=== PATIENT | male | born 1970 | race Caucasian/White ===

== ENCOUNTER 2018-02-23 19:39 | Emergency (ER) | payer MEDICAID, SELFPAY ==
[2018-02-23 19:40] VITALS: BP 166/113; PULSE 82; RESP 15; TEMP 37; O2SAT 98; BMI 25.8
[2018-02-23] MEDS: HYDROmorphone 1 MG/ML Syringe IM (20:03)
[2018-02-23] MEDS: Ondansetron ODT 4 MG Tablet PO (20:08)
--- NOTE | 2018-02-23 22:02 | ED.DCSUM_ITS ---
- ER Visit Summary Date of Service: 02/23/18 Chief Complaint: Laceration History of Present Illness: The patient is a [address] Pathak. He reports his tetanus is up-to-date. He cut his left forearm with a razor knife just prior to coming to the emergency department. He reports he has a sharp pains 10 at 10 severity. Is worsened by movement and relieved by rest. He denies any paresthesias distally. Physical Examination: Vitals: Stable. Afebrile. General: Well-nourished and well-developed. Head: Normocephalic atraumatic. Neck: Supple, no lymphadenopathy. No JVD. Nontender. Cardiovascular: Regular rate and rhythm. No murmurs. Respiratory: No respiratory distress. Clear to auscultation bilaterally. Abdominal: Soft, nontender, nondistended, normal bowel sounds. No guarding, rebound, or peritoneal signs. Back: Nontender. Extremities: 8 cm laceration to the anterior surface of his proximal left forearm. There is tendon involvement. He has decreased sensation to light touch to his fourth and fifth fingers. He has inability to flex his third and fourth fingers against resistance.. Skin: Normal color, no rash. Neurologic: Alert and oriented ?3. Cranial nerves II through XII are intact. Normal strength and sensation. Psych: Normal affect. Emergency Department Course and Treatment: Patient was treated with Dilaudid IM , Zofran p.o., and oxycodone p.o. He had his wound anesthetized. This was then explored with a blood pressure cuff. There is clear involvement of what I suspect is his brachial radialis tendon. The blood pressure cuff was deflated. There is no arterial bleeding. His skin was cleansed and the wound was irrigated. It was then closed. He tolerated this well. Treatment Plan: Patient was discussed with Dr. Lee Fitch who asked that I refer him to hand surgery. He was then discussed with Dr. Curtis, from [facility], who would like him placed on Duricef for the next 5 days. He does not want him placed in a splint. He is instructed to follow-up with him for further evaluation and repair of this tendon laceration. Also questions whether or not the paresthesias may be from swelling and that he will reevaluate this. I discussed with the patient and answered all questions. He will be discharged with oxycodone, Colace, and Duricef. Return to the emergency department for any worsening symptoms. Disposition: To home in improved and stable condition. Impression: 1. Laceration left forearm, 8 cm, with tendon involvement. Procedure note: Wound was cleansed with chlorhexidine soap. Anesthetized with 1% lidocaine without epinephrine. Copiously irrigated with normal saline. Wound was explored there is no foreign material present. It was closed with 7 simple interrupted 4- 0 ethilon sutures. The patient tolerated it well. This note was generated with [employer] dictation software. It may contain incorrect words, spelling, and punctuation that were not noted in review of the chart prior to signing ED Disposition - Plan for ED Patient: Disposition: Home or Assisted Living Chief Complaint: Laceration Instructions: ED Laceration Tendon Prescriptions: Oxycodone HCl/Acetaminophen [Percocet 5/325] 1 tablet PO Q6H PRN PRN 5 Days #20 tablet PRN Reason: Pain Docusate Sodium [Colace] 100 mg PO DAILY #20 capsule Cefadroxil [Duricef] 500 mg PO BID #10 capsule Referrals: Chai Pathak DO [Primary Care Provider] - Additional Instructions: Follow up with Dr. Hernandez in 1 week for further treatment. His number is .
[2018-02-23] MEDS: oxyCODONE 5 MG Tablet 10 MG PO (22:33)
[2018-02-23] MEDS: oxyCODONE 5 MG Tablet PO (22:34)
[2018-02-23] MEDS: Cephalexin 500 MG Capsule PO (22:34)
== END 2018-02-23 22:51 | disposition home or self-care (01) ==
LOC: ED 20:52
PROVIDERS: Emergency Provider Emergency Medicine; Family Provider Family Medicine; PCP Family Medicine
DX: S51.812A Laceration without foreign body of left forearm, initial encounter (principal); S56.124A Laceration of flexor muscle, fascia and tendon of left middle finger at forearm level, initial encounter; S56.126A Laceration of flexor muscle, fascia and tendon of left ring finger at forearm level, initial encounter; S56.128A Laceration of flexor muscle, fascia and tendon of left little finger at forearm level, initial encounter; Z79.899 Other long term (current) drug therapy; W45.8XXA Other foreign body or object entering through skin, initial encounter; Y93.89 Activity, other specified; Y92.89 Other specified places as the place of occurrence of the external cause; Y99.8 Other external cause status
CPT/HCPCS: 12015; 96372; 99285

== ENCOUNTER 2018-10-09 11:45 | Emergency (ER) | payer MEDICAID, SELFPAY ==
[2018-10-09 11:46] VITALS: BP 150/101; PULSE 85; RESP 17; TEMP 36.9; O2SAT 97; BMI 26.9
--- NOTE | 2018-10-09 12:14 | ED.VISSUMM ---
- ER Visit Summary Date of Service: 10/09/18 Chief Complaint: Redness in the left great toe and fifth toe History of Present Illness: The patient is a 48 M who presents with redness in his great toe and fifth toe that has been getting worse over the past month. States his boot rubs against his toes. Patient states the redness is getting progressively worse. Patient describes the pain is sharp. Patient denies any paresthesias or weakness. Patient denies any fevers or chills. Patient denies any discharge or drainage. Physical Examination: Examination of the left foot revealed some mild erythema over the dorsal aspect of the great toe and dorsal and lateral aspects of the fifth toe. There is no discharge or drainage. There is no tenderness. Capillary refill is less than 2 seconds in all digits. Sensation was intact to light touch in all digits. Pedal pulses are equal bilaterally. The remaining physical exam is within normal limits. Emergency Department Course and Treatment: Patient was given a prescription for Keflex. Patient was instructed to keep the areas clean. Patient was instructed to follow-up with his primary care physician in 5-7 days. Patient understood and was agreeable with the plan. All questions were answered. Disposition: Discharge home Impression: Cellulitis left first and fifth toes This note was generated with [employer] dictation software. It may contain incorrect words, spelling, and punctuation that were not noted in review of the chart prior to signing ED Disposition - Plan for ED Patient: Disposition: Home or Assisted Living Diagnosis: Cellulitis of toe of left foot Instructions: ED Infec Skin Cellulitis Prescriptions: Cephalexin [Keflex] 500 mg PO Q6 #40 cap Referrals: Chai Pathak DO [Primary Care Provider] - 5-7 Days
== END 2018-10-09 13:01 | disposition home or self-care (01) ==
PROVIDERS: Emergency Provider Emergency Medicine; Family Provider Family Medicine; PCP Family Medicine
DX: L03.032 Cellulitis of left toe (principal); I10 Essential (primary) hypertension
CPT/HCPCS: 99282

== ENCOUNTER → 2019-03-12 | Outpatient (CLI) | payer MEDICAID, SELFPAY ==
[2019-01-29 15:26] VITALS: BMI 28.5
--- NOTE | 2019-03-12 07:50 | ECHOD_ITS ---
Reason For Study: CHEST PAIN Procedure This was a 2D Doppler, Color Flow transthoracic echocardiogram. Exam performed in department. Left Ventricle Normal size and thickness. The estimated ejection fraction is 65 %. Normal diastology for age. No regional wall motion abnormalities noted. Right Ventricle Normal size and thickness. Normal systolic function. Atria Normal left atrium. Normal right atrium. Normal atrial septum. Mitral Valve The mitral valve is structurally normal. No prolapse or stenosis seen. Trivial mitral valve insufficiency. Tricuspid Valve Normal tricuspid valve. Trivial tricuspid valve insufficiency. Right ventricular systolic pressure estimated to be 29 mmHg. Aortic Valve Normal aortic valve. Trisinus/trileaflet aortic valve. Pulmonic Valve Normal pulmonic valve. Great Vessels Normal aortic root. Normal arch. Normal inferior vena cava. Inferior vena cava collapse with sniff. Pericardium/Pleural No pericardial effusion. MMode/2D Measurements & Calculations LVIDd: 4.1 cm IVSd: 0.97 cm Ao root diam: 3.2 cm LVIDs: 3.1 cm LVPWd: 0.95 cm RVDd: 3.3 cm FS: 24.1 % LAV(MOD-bp): 52.6 ml LVAd ap4: 32.7 cm2 SV(MOD-sp4): 56.4 ml LAV(MOD-bp) Indexed: 27.5 ml/m2 EDV(MOD-sp4): 106.6 ml LAV(MOD-sp2): 48.8 ml EDV(sp4-el): 112.4 ml LAV(MOD-sp4): 50.7 ml LVAs ap4: 20.1 cm2 ESV(MOD-sp4): 50.3 ml ESV(sp4-el): 50.3 ml EF(MOD-sp4): 52.9 % EF(sp4-el): 55.2 % SV(sp4-el): 62.0 ml LA A4 area: 19.1 cm2 LA dimension(2D): 3.5 cm RA A4 area: 13.0 cm2 Time Measurements MV dec time: 0.17 sec Doppler Measurements & Calculations MV E max dontae: 96.8 cm/sec Lat Peak E' Dontae: 12.5 cm/sec Med Peak E' Dontae: 7.7 cm/sec MV A max dontae: 83.9 cm/sec E/E' lat: 7.7 E/E' med: 12.6 MV E/A: 1.2 Ao V2 max: 105.3 cm/sec LV V1 max: 103.8 cm/sec TR max dontae: 246.3 cm/sec Ao max P.4 mmHg LV V1 max P.3 mmHg TR max P.3 mmHg Interpretation Summary The estimated ejection fraction is 65 %. Normal diastology for age. Trivial mitral valve insufficiency. Trivial tricuspid valve insufficiency. Right ventricular systolic pressure estimated to be 29 mmHg. There is no comparison study available. Ordering Physician: Julio C Weldon Referring Physician: COLEEN HERNANDEZ Performed By: Ange Gamble, DAVID, RVT
[2019-03-12 09:07] LABS: AST(SGOT) 38 U/L (15-37); Alanine Aminotransfer ALT/SGPT 60 U/L (16-61); Albumin, Serum 3.9 g/dL (3.2-5.0); Alkaline Phosphatase 51 U/L (45-117); Bilirubin, Direct 0.08 mg/dL (0.00-0.30); Cholesterol 221 mg/dL (200); Globulin 3.9 g/dL (2.2-4.2); High Density Lipoprotein 28 mg/dL; Protein, Total 7.8 g/dL (6.4-8.2); Triglycerides 255 mg/dL; Very Low Density Lipoprotein 51 mg/dL (5-40)
== END | disposition home or self-care (01) ==
LOC: CVS 07:48
PROVIDERS: Family Provider Family Medicine; PCP Family Medicine; Referring Provider Internal Medicine Cardiovascular Disease; Visit Provider Internal Medicine Cardiovascular Disease
DX: R07.9 Chest pain, unspecified (principal); R06.02 Shortness of breath; E78.5 Hyperlipidemia, unspecified; I10 Essential (primary) hypertension; I25.2 Old myocardial infarction
CPT/HCPCS: 36415; 80061; 80076; 93306

== ENCOUNTER → 2019-03-16 | Outpatient (CLI) | payer MEDICAID, SELFPAY ==
[2019-01-29 15:26] VITALS: BMI 28.5
--- NOTE | 2019-03-16 09:22 | STE_ITS ---
Reason For Study: CHEST PAIN Stress Results Protocol: Manan Protocol Maximum Predicted HR: 171 bpm Target HR: 145 bpm % Maximum Predicted HR: 99 % DurationHeart Rate Stage (mm:ss) (bpm) BP BASELINE 70 150/84 STAGE 1 3:00 102 150/80 STAGE 2 3:00 117 178/82 STAGE 3 3:00 129 184/80 STAGE 4 1:00 169 / RECOVERY 97 142/82 Stress Duration: 10:00 mm:ss Maximum Stress HR: 169 bpm Baseline Echocardiogram Findings The estimated ejection fraction is 65 %. Stress Echo Wall motion Data Resting WM Intermediate WM Stress WM Resting Wall Motion Wall Motion Stress No regional wall motion No regional wall motion abnormalities noted. abnormalities noted. EKG Data The baseline ECG displays normal sinus rhythm. The patient exercised according to the regular Manan protocol for a total duration of 10:00. The maximum heart rate attained was 171 beats per minute. This was 100% of maximum predicted heart rate. The patient exercised into stage 4 of the Manan protocol. During stress, there were no ST or T wave changes noted to suggest ischemia. No arrhythmias noted. No clinical angina was noted. Interpretation Summary The estimated ejection fraction is 65 %. Normal, adequate, treadmill echocardiogram. Negative for ischemia by EKG and echocardiographic criteria. No anginal symptoms noted. No arrhythmias noted. Appropriate blood pressure response to exercise. Final LVEF of 75%.Test terminated due to dyspnea and target heart rate achieved. No complications. Ordering Physician: Julio C Weldon Referring Physician: Julio C Weldon Performed By: Ange Gamble, DAVID, RVT
== END | disposition home or self-care (01) ==
LOC: CVS 09:21
PROVIDERS: Family Provider Family Medicine; PCP Family Medicine; Referring Provider Internal Medicine Cardiovascular Disease; Visit Provider Internal Medicine Cardiovascular Disease
DX: R07.9 Chest pain, unspecified (principal); I25.2 Old myocardial infarction; E78.5 Hyperlipidemia, unspecified; I10 Essential (primary) hypertension; R06.02 Shortness of breath
CPT/HCPCS: 93017; 93350

== ENCOUNTER 2019-11-11 10:18 | Emergency (ER) | payer MEDICAID, SELFPAY ==
[2019-08-20 09:51] VITALS: BMI 27.6
[2019-11-11 10:19] VITALS: BP 166/109; PULSE 90; PULSE 95; RESP 17; TEMP 36.4; O2SAT 97; BMI 26.2
--- NOTE | 2019-11-11 10:44 | ED.VIS.GEN ---
History of Present Illness Chief Complaint: Upper Extremity Injury Narrative: Patient is a 49-year-old male who presents with bilateral hand numbness and elbow pain. He states he has had some chronic numbness in his forearms and hands ever since a bilateral shoulder injury. He notes that his hands are sitting up on a table for example when he is playing cards his hands go numb. 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 No recent direct trauma or injury. He is treated for hypertension but otherwise denies medical history. Past Medical History - Allergies and Home Meds Allergies/Adverse Reactions: Allergies codeine Allergy (Severe, Verified 11/11/19 10:19) Anaphylaxis chlorzoxazone [From Parafon Forte] Allergy (Verified 11/11/19 10:19) Hives hydrochlorothiazide Adverse Reaction (Intermediate, Verified 11/11/19 10:19) GI upset lisinopril Adverse Reaction (Intermediate, Verified 11/11/19 10:19) GI upset tramadol Adverse Reaction (Verified 11/11/19 10:19) Nausea Primary Care Physician: Chai Pathak DO [Primary Care Provider] - Past Medical History: - - Hypertension Smoking Status: Never smoker Review of Systems All systems negative except as indicated General: Denies: Fever Cardiovascular: Denies: Chest pain Respiratory: Denies: Dyspnea Gastrointestinal: Denies: Vomiting Musculoskeletal: Reports: - - Bilateral elbow pain and hand numbness Skin: Denies: Rash Neurological: Denies: Headache Physical Exam Vital Signs/Narrative: Vital Signs Temp Pulse Resp BP Pulse Ox 11/11/19 10:19 97.5 F L 90 17 166/109 H 97 Inital Vital Signs reviewed: Yes General: Well nourished Head: Normocephalic Eyes: EOMI ENT: Moist mucous membranes Neck: Supple Cardiovascular: Regular rate Respiratory: No distress Extremities: - - Normal strength and motor function of the bilateral upper extremities he has no reproducible tenderness no focal bony tenderness no soft tissue swelling or edema easily palpable radial pulses sensation is intact to light touch in both hands although he reports that it seems to be less than usual. Skin: Normal color Neurological: Alert Psychological: Normal affect Diagnostic/Tx/Re-eval - Medical Decision Making Patient's presentation is most suggestive of a neuropathy. He may have cubital tunnel syndrome or carpal tunnel syndrome. He was given a left wrist splint as is most significant symptoms are numbness in the left hand. He was given a prescription for naproxen. He was referred to orthopedics. He understands to return for new or worsening symptoms and was discharged home. ED Disposition - Plan for ED Patient: Disposition: Home or Assisted Living Diagnosis: Carpal tunnel syndrome of left wrist Instructions: ED Carpal Tunnel Prescriptions: Naproxen [Naprosyn] 500 mg PO BID PRN #20 tab Prescription Printed Referrals: Chai Pathak DO [Primary Care Provider] - Tamara Koo DO [STAFF PHYSICIAN] -
--- NOTE | 2019-11-11 11:02 | ED.RN ---
DISCHARGE INSTRUCTIONS GIVEN TO AND REVIEWED WITH PATIENT, PATIENT DENIES QUESTIONS OR CONCERNS AND VOICES UNDERSTANDING OF DISCHARGE INSTRUCTIONS. PT AMBULATES OUT OF ROOM WITHOUT DIFFICULTY.
== END 2019-11-11 11:03 | disposition home or self-care (01) ==
LOC: ED 10:54
PROVIDERS: Emergency Provider Emergency Medicine; PCP Family Medicine
DX: G56.02 Carpal tunnel syndrome, left upper limb (principal); I10 Essential (primary) hypertension; Z79.899 Other long term (current) drug therapy
CPT/HCPCS: 99283

== ENCOUNTER → 2019-11-18 | Outpatient (CLI) | payer MEDICAID, SELFPAY ==
[2019-11-18 14:21] VITALS: BMI 26.2
--- NOTE | 2019-11-18 14:22 | RAD_ITS ---
STUDY: X-RAY - CERVICAL SPINE REASON FOR EXAM: Male, 49 years old. Shoulder pain and tingling TECHNIQUE: 6 view(s) of the cervical spine were obtained. COMPARISON: None FINDINGS: Normal anterior atlantoaxial articulation. Normal odontoid process. Normal cervical lordosis. There is multi-level endplate spondylosis. There is multi-level degenerative disc disease with multilevel disc space narrowing, most pronounced at C4-5 and C5-6. There is multi-level osseous foraminal stenosis. The soft tissue structures are unremarkable. There is no demonstrated fracture of the cervical spine. RAD/Cerv Spine 4 or 5 Views IMPRESSION: Multilevel degenerative changes, most pronounced at C4-5 and C5-6. Electronically Signed: Brian Delcid MD at 14:45 EDT , Service support ,
== END | disposition home or self-care (01) ==
LOC: HPRAD 14:22
PROVIDERS: PCP Family Medicine; Referring Provider Physician Assistant; Visit Provider Physician Assistant
DX: R20.0 Anesthesia of skin (principal); R20.2 Paresthesia of skin
CPT/HCPCS: 72050

== ENCOUNTER 2019-12-21 12:23 | Emergency (ER) | payer MEDICAID, SELFPAY ==
[2019-11-18 15:09] VITALS: BMI 26.2
[2019-12-21 12:25] VITALS: BP 200/130; PULSE 89; RESP 16; TEMP 36.6; O2SAT 98; BMI 27.4
--- NOTE | 2019-12-21 14:03 | RAD_ITS ---
STUDY: X-RAY - LUMBAR SPINE REASON FOR EXAM: Male, 49 years old. LUMBAR RADICULOPATHY. RLE PAIN. NO DEFINITE TRAUMA. HX BACK SURGERY. TECHNIQUE: AP and lateral view(s) of the lumbar spine were obtained. COMPARISON: None FINDINGS: There is straightening of the normal lumbar lordosis. There is no substantial scoliosis. There is a normal alignment of the vertebrae. There is multilevel endplate spondylosis of the lumbar vertebrae. Mild degree of disc space narrowing at the L5-S1 level. The soft tissue structures are unremarkable. RAD/Lumbar Spine 2 or 3 Views IMPRESSION: Degenerative changes of the spine, as detailed above. Electronically Signed: Ted Quinteros, at 15:29 EDT , Service support ,
--- NOTE | 2019-12-21 14:20 | ED.VIS.GEN ---
History of Present Illness Chief Complaint: Back Informant: Patient Narrative: Patient presents emergency department with pain in the right low back into the right leg. Patient states that symptoms began on Saturday while taking a shower. He states that he has a history of a lumbar discectomy in 2007. He reports that today he attempted to lift a 80 pound bag of concrete and it got significantly worse. He states he has not had much sleep for the past couple days. He tried some gabapentin and tizanidine. This has not helped. He does not see somebody routinely for his back. He states he does not routinely see his primary care physician. He reports that he has not had any bowel or bladder dysfunction. He states that he does not have any loss of sensation or muscle strength but very painful to move. He notes no position of comfort. No fevers. No history of IV drug use. No abdominal pain. Past Medical History - Allergies and Home Meds Allergies/Adverse Reactions: Allergies codeine Allergy (Severe, Verified 11/11/19 10:19) Anaphylaxis chlorzoxazone [From Parafon Forte] Allergy (Verified 11/11/19 10:19) Hives hydrochlorothiazide Adverse Reaction (Intermediate, Verified 11/11/19 10:19) GI upset lisinopril Adverse Reaction (Intermediate, Verified 11/11/19 10:19) GI upset tramadol Adverse Reaction (Verified 11/11/19 10:19) Nausea Primary Care Physician: Chai Pathak DO [Primary Care Provider] - As soon as possible Smoking Status: Never smoker Review of Systems General: Denies: Chills, Fever, Sweats Eyes: Denies: Visual changes - bilaterally, Diplopia ENT: Denies: Rhinorrhea, Sore throat Cardiovascular: Denies: Chest pain, Palpitations Respiratory: Denies: Dyspnea, Cough, Dyspnea on exertion Gastrointestinal: Denies: Abdominal pain, Nausea, Vomiting, Diarrhea, Melena, Hematochezia Genitourinary: Denies: Dysuria, Hematuria, Frequency Musculoskeletal: Reports: Back pain. Denies: Extremity Pain Skin: Denies: Rash, Wounds Neurological: Denies: Headache, Weakness, Parasthesia, Numbness Physical Exam Vital Signs/Narrative: Vital Signs Temp Pulse Resp BP Pulse Ox 12/21/19 12:25 97.8 F 89 16 200/130 H 98 Inital Vital Signs reviewed: Yes General: Well nourished, Well developed, No Acute Distress Head: Normocephalic, Atraumatic Eyes: Perrl, EOMI ENT: Moist mucous membranes, No rhinorrhea Neck: Supple, Nontender Cardiovascular: Regular rate, Regular rhythm, No murmurs Respiratory: No distress, CTA bilaterally, Chest nontender Abdomen: Soft, Nontender, Nondistended, Normal bowel sounds Back: - - Patient has tenderness at L5 and S1. On the right side. There is palpable muscle spasm. He has tenderness over the piriformis region. Neurovascularly he appears intact. Antalgic gait. Extremities: Nontender, No edema Skin: Normal color, No rash Neurological: Alert, Oriented x3, Cranial nerves II-XII grossly intact, Normal Strength, Normal Sensation, Normal DTR Psychological: Normal affect, Normal Mood Diagnostic/Tx/Re-eval Clinical Impression(s) from Imaging Studies Lumbar Spine X-Ray 12/21/19 14:03 IMPRESSION: Degenerative changes of the spine, as detailed above. Electronically Signed: Ted Quinteros, at 15:29 EDT , Service support , - Medical Decision Making Patient received a dose of Flexeril and oxycodone. Series show degenerative changes. I do not see an indication for acute MRI as he has no acute neurologic deficits. Plan will be oxycodone and Flexeril and anti-inflammatories at home. He is to obtain early follow-up with primary care. As far as his blood pressure it has remained significantly elevated. He sees cardiology who manages this. He recently had losartan increased to 50 mg. He states his blood pressure today is much significantly higher than what it has been but he wonders if this could be pain which I would agree with. He does not have any acute symptoms of hypertension. At the time of my exit interview his blood pressure is down to 198/98. he is to monitor this and follow-up with cardiology as needed. ED Disposition - Plan for ED Patient: Disposition: Home or Assisted Living Diagnosis: Lumbar back pain with radiculopathy affecting right lower extremity, Hypertension Instructions: ED Hypertension Established, ED LUMBAR RADICULOPATHY Prescriptions: cycloBENZAPRine HCl [Flexeril] 10 mg PO TID PRN #20 tab PRN Reason: Muscle Spasm Transmission Status: Pending to [address] MethylPREDNISolone DosePak [Medrol DosePak] 4 mg PO UD #1 box Transmission Status: Pending to [address] Ibuprofen [Motrin] 800 mg PO TID PRN PRN #20 tab PRN Reason: Pain Or Fever Transmission Status: Pending to [address] Oxycodone HCl/Acetaminophen [Percocet 5/325] 1 tablet PO Q6H PRN PRN 5 Days #20 tablet PRN Reason: pain Transmission Status: Received by [address] Referrals: Chai Pathak DO [Primary Care Provider] - As soon as possible Julio C Weldon MD [STAFF PHYSICIAN] - (for your hypertension - continue to monitor)
[2019-12-21] MEDS: oxyCODONE 5 MG Tablet 10 MG PO (14:23)
[2019-12-21] MEDS: cycloBENZAPRine HCl 10 MG Tablet PO (14:23)
[2019-12-21 16:22] VITALS: BP 162/77; PULSE 73; RESP 15; O2SAT 97
== END 2019-12-21 16:23 | disposition home or self-care (01) ==
PROVIDERS: Emergency Provider Emergency Medicine; PCP Family Medicine
DX: M54.16 Radiculopathy, lumbar region (principal); I10 Essential (primary) hypertension; Z79.899 Other long term (current) drug therapy
CPT/HCPCS: 72100; 99283

== ENCOUNTER → 2019-12-31 | Outpatient (CLI) | payer MEDICAID, SELFPAY ==
[2019-12-21 12:25] VITALS: BMI 27.4
--- NOTE | 2019-12-31 17:39 | MRI_ITS ---
STUDY: MRI CERVICAL SPINE WITHOUT CONTRAST REASON FOR EXAM: Male, 49 years old. upper ext parasthesias, NECK PAIN X 6 YEARS TECHNIQUE: Standardized fat and water weighted pulse sequences were obtained in the sagittal and axial planes. COMPARISON: Radiographs 11/18/2019 FINDINGS: Normal foramen magnum and brainstem-cervical cord junction. Normal craniovertebral junction. Normal anterior atlantoaxial articulation. Normal odontoid process. Normal cervical lordosis. Normal vertebral bodies and posterior osseous elements. C2-3: Normal endplates. Normal disc height, signal and morphology. Normal central canal and intervertebral neural foramina. C3-4: Disc osteophyte complex and right facet hypertrophy with severe right foraminal stenosis. C4-5: Disc osteophyte complex with mild central canal and severe right foraminal stenoses. C5-6: Disc osteophyte complex with moderate central canal and severe bilateral foraminal stenoses. C6-7: Disc osteophyte complex with mild central canal and moderate right foraminal stenoses. C7-T1: Normal endplates. Normal disc height, signal and morphology. Normal central canal and intervertebral neural foramina. Normal cervical cord. Normal visualized soft tissue structures. MRI/Spine Cervical (Routine) IMPRESSION: Multilevel degenerative disease as described. Severe foraminal stenoses on the right at C3-4, on the right at C4-5, and bilaterally at C5-6. Electronically Signed: Neeraj Haider MD at 19:05 EDT Tel , Service support ,
== END | disposition home or self-care (01) ==
LOC: MRI 17:39
PROVIDERS: PCP Family Medicine; Referring Provider Physician Assistant; Visit Provider Physician Assistant
DX: M50.30 Other cervical disc degeneration, unspecified cervical region (principal); M79.601 Pain in right arm; M79.602 Pain in left arm; R20.2 Paresthesia of skin
CPT/HCPCS: 72141

== ENCOUNTER 2021-02-13 08:43 | Emergency (ER) | payer MEDICAID, SELFPAY ==
[2021-02-13 08:43] VITALS: BP 153/79; PULSE 83; RESP 16; TEMP 36.7; O2SAT 99; BMI 24.5
--- NOTE | 2021-02-13 09:00 | RAD_ITS ---
STUDY: X-RAY CHEST REASON FOR EXAM: Male, 50 years old. COUGH TECHNIQUE: Single AP portable view of the chest. COMPARISON: None. FINDINGS: Hyperinflation. The lungs are clear. There is no demonstrated pleural abnormality. Normal size heart. Normal mediastinum and heather. Normal visualized pulmonary arteries. Normal visualized aortic arch and descending thoracic aorta. Normal visualized thoracic spine. Normal visualized ribs, clavicles, and shoulders. There is no demonstrated abnormality of the visualized soft tissue structures of the upper abdomen. RAD/Chest 1 View (Portable) IMPRESSION: Normal x-ray examination of the chest. Electronically Signed: Ted Quinteros MD at 9:40 EDT , Service support ,
--- NOTE | 2021-02-13 09:12 | EDS_ITS ---
HPI History of Present Illness Chief Complaint: Fatigue Narrative Narrative: Patient presents with sore throat and fatigue for the past few days no fevers, he has a slight nonproductive cough. He feels some myalgias. He has no shortness of breath. No chest pain. He has no nausea or vomiting. He does not feel lightheaded he has no headache neck pain or neck stiffness. No confusion. PFSH [facility] Medical History (Updated 02/13/21 @ 10:[address] Junito Costello MD) Essential hypertension GERD (gastroesophageal reflux disease) History of CT (myocardial infarction) Hyperlipidemia Neurogenic bladder Home Medications cyclobenzaprine 10 mg PO TID PRN #20 tab 12/21/19 [Rx Last Taken Unknown] ibuprofen 800 mg PO TID PRN PRN #20 tab 12/21/19 [Rx Last Taken Unknown] methylprednisolone 4 mg tablets in a dose pack 4 mg PO UD #1 box 01/14/20 [Rx Last Taken Unknown] losartan 50 mg tablet 50 mg PO DAILY #90 tab 10/24/20 [Rx Last Taken Unknown] dexamethasone [Decadron] 12 mg PO DAILY #6 tab 02/13/21 [Rx Last Taken Unknown] Allergy/AdvReac Type Severity Reaction Status Date / Time codeine Allergy Severe Anaphylaxis Verified 11/11/19 10:19 chlorzoxazone Allergy Hives Verified 11/11/19 10:19 [From Parafon Forte] hydrochlorothiazide AdvReac Intermediate GI upset Verified 11/11/19 10:19 lisinopril AdvReac Intermediate GI upset Verified 11/11/19 10:19 tramadol AdvReac Nausea Verified 11/11/19 10:19 Family History Mother Diabetes Grandmother Dementia Cancer breast Surgical History History of ankle surgery History of appendectomy History of knee surgery History of left heart catheterization History of right inguinal hernia repair History of surgery on arm Status post lumbar microdiscectomy (~2007) Social History (Updated 02/09/20 @ 12:55 by Mohit BARRERA, PA) Smoking Status: Former smoker how long ago did patient quit smokin years ago alcohol intake: current alcohol intake frequency: a few times a week substance use type: former substance user Date of last use: 13 years ago, marijuana and crack/cocaine caffeine: Yes Type: coffee Number of servings: 2 ROS ROS ED ROS Narrative Past medical history: Reviewed, includes hypertension, hyperlipidemia, history of CT. Medications: Reviewed Social history: Noncontributory Review of systems: All systems negative except as indicated General: No fever Eyes: No visual changes ENT: Sore throat, he feels a fullness in his throat Neck: No neck pain Cardiovascular: No chest pain Respiratory: No shortness of breath. Intermittent cough that is nonproductive Gastrointestinal: No abdominal pain, nausea vomiting or diarrhea Genitourinary: No dysuria Musculoskeletal: Some generalized myalgias. Skin: No rash Neurological: No memory loss, confusion or any focal weakness Psych: No recent behavioral changes Hematologic: No easy bleeding or easy bruising EXAM Physical Exam Narrative Exam Narrative: Physical exam General: Patient is a well-appearing male without any distress he is sitting comfortably in bed. Head: Normocephalic, Atraumatic Eyes: Conjunctiva not pale ENT: Moist mucous membranes. No signs of dehydration. He has an enlarged uvula and postnasal drip without any exudates. Normal soft palate. He has some rhinorrhea and swollen nasal turbinates. Neck: Supple, Nontender, No lymphadenopathy Cardiovascular: Regular rate, Regular rhythm Respiratory: No distress, CTA bilaterally Abdomen: Soft, Nontender, Nondistended Back: Nontender, Normal Inspection. Negative for: CVA tenderness Extremities: Nontender, No edema Skin: Normal color, No rash Neurological: Alert, Normal Strength, Normal Sensation Psychological: Normal affect Const Vital Signs: 02/13/21 08:43 02/13/21 08:51 Temperature 98.0 F Temperature Source Temporal Pulse Rate 83 Respiratory Rate 16 Respiratory Effort Normal Non-Labored Respiratory Pattern Normal Blood Pressure 153/79 H Blood Pressure Mean 103 Pulse Ox 99 Oxygen Delivery Method Room Air MDM MDM MDM Narrative Medical decision making narrative: Patient has a normal x-ray he appears well he has normal vitals he is not hypoxic, his signs and symptoms are consistent with uvulitis. I'll treat with steroids, he does not meet criteria for antibiotics. I also checked a Covid but its not back yet. Radiography Diagnostic Testing: Radiology Impression Chest X-Ray 02/13/21 09:00 IMPRESSION: Normal x-ray examination of the chest. Electronically Signed: Ted Quinteros MD at 9:40 EDT , Service support , Normal chest x-ray interpreted by me and the radiologist does not show any pneumonia. Discharge Plan Triage Chief Complaint: Fatigue ED Provider: Junito Costello Dx/Rx/DC Orders Clinical Impression: Uvulitis, Acute upper respiratory infection Instructions: ED Uvulitis, ED URI, Viral, No Abx (Adult) Prescriptions: New dexamethasone [Decadron] 4 mg tablet 12 mg PO DAILY Qty: 6 RF: 0 No Action methylprednisolone 4 mg tablets,dose pack 4 mg PO UD Qty: 1 RF: 0 ibuprofen 800 MG tablet 800 mg PO TID PRN PRN (Reason: Pain Or Fever) Qty: 20 RF: 0 cyclobenzaprine 10 MG tablet 10 mg PO TID PRN (Reason: Muscle Spasm) Qty: 20 RF: 0 losartan 50 mg tablet 50 mg PO DAILY Qty: 90 RF: 3 Primary Care Provider: Chai Pathak Referrals: Chai Pathak DO [Primary Care Provider] -
[2021-02-13] MEDS: dexAMETHasone 10 MG/ML Vial PO.IVFORM (10:15)
[2021-02-13 10:18] VITALS: PULSE 76; RESP 17; O2SAT 98
== END 2021-02-13 10:37 | disposition home or self-care (01) ==
LOC: ED 09:56
PROVIDERS: Emergency Provider Emergency Medicine; PCP Family Medicine
DX: K12.2 Cellulitis and abscess of mouth (principal); J06.9 Acute upper respiratory infection, unspecified; I25.2 Old myocardial infarction; I10 Essential (primary) hypertension; Z87.891 Personal history of nicotine dependence; Z79.52 Long term (current) use of systemic steroids
CPT/HCPCS: 71045; 87426; 96374; 99283

== ENCOUNTER → 2021-03-07 17:39 | Outpatient (CLI) | payer MEDICAID, SELFPAY ==
--- NOTE | 2021-03-07 17:41 | CT_ITS ---
STUDY: CT ABDOMEN AND PELVIS WITH CONTRAST REASON FOR EXAM: Male, 50 years old. ABD PAIN/RLQ/POSS HERNIA RADIATION DOSAGE (If Supplied By Facility): CTDIvol = ( 15.43 ) mGy, DLP = ( 700.09 ) mGycm TECHNIQUE: Transaxial images were obtained from the dome of the diaphragm to the symphysis pubis with oral contrast. 100 mL Isovue-370 was administered. Sagittal and coronal images were reconstructed. Individualized dose optimization techniques were used for this CT. COMPARISON: None. FINDINGS: There is a granuloma in the left lower lobe. The visualized portions of the heart are within normal limits. Normal liver. Normal gallbladder and extrahepatic biliary system. Normal spleen. Normal pancreas. Normal bilateral adrenal glands. Normal right kidney. Normal left kidney. Normal visualized stomach. Normal small intestine. There are multiple colonic diverticula consistent with diverticulosis. There is non-visualization of the appendix. No focal fluid collection. There is diffuse atherosclerotic calcification of the abdominal aorta, without a demonstrated aneurysm. Normal inferior vena cava. Normal retroperitoneum. Normal urinary bladder. Small fat-containing bilateral inguinal hernias (image 98 series 2, image 44 series 601). No additional abdominal wall hernia. Normal osseous structures. CT/Abdomen/Pelvis WITH Contrast IMPRESSION: 1. Small fat-containing bilateral inguinal hernias. 2. No focal fluid collection. Electronically Signed: Sagar Alexander MD ([place]) at 9:22 EDT , Service support ,
[2021-03-07 17:51] LABS: CREATININE FINGERSTICK 0.9 mg/dL (0.70-1.30); EGFR FINGERSTICK > 60.0000 mL/min (>60)
== END ==
PROVIDERS: PCP Family Medicine; Referring Provider Family Medicine; Visit Provider Family Medicine
DX: K46.9 Unspecified abdominal hernia without obstruction or gangrene (principal); R10.9 Unspecified abdominal pain
CPT/HCPCS: 74177; Q9967

== ENCOUNTER 2021-05-05 05:09 | Day surgery (SDC) | payer MEDICAID, SELFPAY ==
--- NOTE | 2021-05-05 | GASB_PTH ---
PATIENT: BELLO FLOREZ LOC: EN U#:[id number] AGE/SX: 50/M ROOM: RE05/05/[address]: Dr. Raphael Spencer MD : 1970 BED: DIS: 05/05/2021 SPEC #: [id number] RECD: 05/05/21 12:32 STATUS: SUN BRITTA #: [id number] NAHUN: 05/05/21 00:[address]: Raphael Spencer DEPT: SURGICAL PATHOLOGY RECD BY: Familia Venegas ENTERED: 05/05/21 12:32 SP TYPE: Gastric Bx OTHR DR: Dr. Chai Pathak DO Tissues: A - Gastric mucous membrane B - Gastric mucous membrane C - Esophageal mucous membrane Procedures: Surgery Specimen Level IV HEADER OPERATION: Colonoscopy, EGD ([facility]) PRE-OP DIAGNOSIS: GERD, nausea, vomiting, constipation, hematochezia, bilateral hernia TISSUE SUBMITTED: A ? Antrum biopsy for H. pylori and path, B ? GE junction biopsy, C ? Esophageal polyp biopsy MICROSCOPIC DIAGNOSIS A. Antrum, biopsy: Mild gastritis. See microscopic description and comment. B. GE junction, biopsy: A fragment of squamous mucosa with changes consistent with gastroesophageal reflux disease. C. Esophageal polyp, biopsy: A fragment of squamous mucosa with mild chronic inflammation. SJ:rg 05/08/2021 COMMENT A. The results of immunohistochemistry for Helicobacter pylori will be reported separately ([id number]). MICROSCOPIC DESCRIPTION Slides are reviewed. A. The specimen shows fragments of gastric mucosa with chronic inflammatory cell infiltrates in the lamina propria consisting of lymphocytes and plasma cells, consistent with mild chronic gastritis. GROSS DESCRIPTION A - Received in fixative is one container labeled with the patient's name and designated antrum biopsy. The specimen consists of multiple irregular fragments of light zhang soft tissue that in aggregate measure 0.5 x 0.5 x 0.1 cm. The specimen is totally submitted in one cassette. B - Received in fixative is one container labeled with the patient's name and designated GE junction biopsy. The specimen consists of one irregular fragment of light zhang soft tissue that measures 0.5 x 0.2 x 0.1 cm. The specimen is totally submitted in one cassette. C - Received in fixative is one container labeled with the patient's name and designated esophageal polyp biopsy. The specimen consists of one irregular fragment of light zhang soft tissue that measures 0.8 x 0.2 x 0.1 cm. The specimen is totally submitted in one cassette. / SJ:rg 05/05/21 TC:3 CPT: 35384 x3
[2021-05-05 05:50] VITALS: BP 123/87; PULSE 80; RESP 18; TEMP 36.9; O2SAT 98; BMI 26.3
[2021-05-05] MEDS: Lactated Ringers 1,000 ML 15 ML IV (05:55)
--- NOTE | 2021-05-05 06:12 | HP.PCM_ITS ---
History and Physical Date of Admission: 05/05/21 Date of Service: 03/24/21 MR#:[id number]:[id number]: BELLO FLOREZ [facility] #:[id number]:1970 Provider:Marivel Peterson/Sex: 50/M [facility] Vital Signs 03/24/21 13:11 Height 5 ft 6.6 in Weight: 170 lb 8 oz BMI 27.0 BP 164/89 H Blood Pressure Location Rt brachial Position Sitting Respiration 18 Pulse 93 Pulse Source Monitor Temp 97.4 F L Temp Source Temporal Pulse Oximetry (%) 98 Oxygen Delivery Method room air Intake Visit Reasons: INGUINAL HERNIA Chief Complaint: Bilateral inguinal hernias Medical Coder Required: No Accompanied by: Is patient in pain?: No Allergies codeine Allergy (Severe, Verified 03/24/21 13:13) Anaphylaxis chlorzoxazone [From Parafon Forte] Allergy (Verified 03/24/21 13:13) Hives hydrochlorothiazide Adverse Reaction (Intermediate, Verified 03/24/21 13:13) GI upset lisinopril Adverse Reaction (Intermediate, Verified 03/24/21 13:13) GI upset tramadol Adverse Reaction (Verified 03/24/21 13:13) Nausea Medications ibuprofen 800 mg PO TID PRN PRN #20 tab 12/21/19 [Rx Confirmed 03/24/21] methylprednisolone 4 mg tablets in a dose pack 4 mg PO UD #1 box 01/14/20 [Rx Confirmed 03/24/21] losartan 50 mg tablet 50 mg PO DAILY #90 tab 10/24/20 [Rx Confirmed 03/24/21] allopurinol 100 mg tablet 100 mg PO DAILY 03/24/21 [History Confirmed 03/24/21] omeprazole 40 mg capsule,delayed release 40 mg PO DAILY 03/24/21 [History Confirmed 03/24/21] [facility] Medical History Abdominal pain Bilateral inguinal hernia Essential hypertension GERD (gastroesophageal reflux disease) Gout History of [place] (myocardial infarction) Hyperlipidemia Nausea and vomiting Neurogenic bladder Surgical History History of ankle surgery History of appendectomy History of knee surgery History of left heart catheterization History of right inguinal hernia repair History of surgery on arm Status post lumbar microdiscectomy (~2007) Family History Mother Diabetes Hypertension Thyroid disorder Grandmother Dementia Cancer breast Social History Smoking Status: Former smoker how long ago did patient quit smokin years ago alcohol intake: current alcohol intake frequency: a few times a week substance use type: former substance user Date of last use: 13 years ago, marijuana and crack/cocaine caffeine: Yes Type: coffee Number of servings: 2 HPI HPI HPI: BELLO FLOREZ, is a 50 M who presents to the office today for newly?diagnosed bilateral inguinal hernias. This finding was first noticed by CT imaging performed for complaints of abdominal pain. Patient is referred from Dr. Pathak. Patient is not able to recall how this occurred. He denies feeling the hernia sac bulging and then not reducible. He does detail a story about a prior right inguinal hernia repair (anterior approach) that was connected to a lifting event at the age of 14. He states his biggest concerns have been related to vomiting in his sleep. He states the symptoms have been persistent for approximately the last year. This occurs with the frequency of roughly every 3 days. Both food and acid come up as part of this vomitus. This does not seem to occur at any particular time of day. 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 He is distressed by this symptom, because it is affecting his diet and he is certainly restricted what he eats. He is prescribed omeprazole and finds this is the only way he can eat. Mr. Florez states this is not the first occurrence with the symptoms and that he actually first noticed abdominal pain and nausea/vomiting in 2009. However, the work-up for this complaint was hampered by the fact that he presented in hypertensive crisis to this physician and was recommended an inpatient stay. This resulted in a 13?day hospital stay where he was worked up for his severe hypertension and cardiovascular causes thereof. He denies ever undergoing investigative endoscopy for his GI complaints. Beyond his nausea and vomiting, Mr. Florez states he has a history of constipation. He says this is triggered by eating any kind of meat. He describes that he had the rabbit poops yesterday where his stool caliber was very small. He relates that sometimes it will take 45 minutes to go. Additionally he has noticed some fresh blood and more occasionally black stools. He denies any personal history of diverticulitis (but diverticulosis was noted on CT imaging that showed the bilateral inguinal hernias mentioned above). He also denies any personal history of inflammatory bowel disease or cancer. He denies the same for any family history. Patient has a personal history of smoking but has not used tobacco since 2008. Patient has a more remote history of cocaine use which he has not used since 2005. Pertinent surgical history includes: Right inguinal hernia repair. (As well as traumatic laceration of the anterior abdominal wall from a construction accident) ROS General General: Yes weight change; No appetite, fatigue, colon cancer, breast cancer or weakness HEENT HEENT: Yes difficulty swallowing and swollen glands; No eye injury, eye surgery or hoarseness Endo Endocrine: No thyroid disease, diabetes mellitus, thyroid cancer, Hair loss, heat intolerance or cold intolerance Skin Skin: Yes rash; No changing moles Breast Breast: No left breast lump, right breast lump, nipple discharge, breast pain, abnormal mammogram, abnormal US or breast enlargement Musc Musculoskeletal: Yes gout; No back problems, arthritis, rheumatoid arthritis or joint pain Cardio Cardiovascular: Yes high blood pressure; No murmur, pacemaker, heart disease, atrial fibrillation, heart attack, heart stent, palpitations, shortness of breat with exertion or chest pain Psych Psychiatric: No depression, anxiety or hearing voices Resp Respiratory: Yes shortness of breath, No sleep apnea, No cough, No COPD, No asthma, No emphysema and No wheezing Gastro Gastrointestinal: Yes abdominal pain, Yes nausea or vomiting, No diarrhea, Yes constipation, Yes blood in stool, Yes acid reflux, Yes hemorrhoids, No ulcers, No gallbladder problem and No black,tarry stools Esteban Hematologic: No blood thinners, No blood disorders, No bleeding, No anemia and No blood clots Neuro Neurologic: No system reviewed and no additional complaints, except as documented, No as per HPI, No abnormal gait, No abnormal hearing, No abnormal movements, No abnormal speech, No behavioral changes, No burning sensations, No confusion, No convulsions, No disequilibrium, No dizziness, No localized weakness, No frequent falls, No headache(s), No lack of coordination, No loss of vision, No memory loss, Yes numbness, No other visual disturbances, No radicular pain, No restless legs, No sensory deficit, No syncope, Yes tingling, No tremor(s), No weakness and No other Exam Const General: cooperative, healthy appearing, comfortable and no acute distress Nutritional Appearance: average body habitus and well nourished Orientation: alert, awake and oriented x3 Resp Effort & Inspection: normal respiratory effort Auscultation: no rales, no rhonchi and no wheezes Cardio Rate: regular rate Rhythm: regular rhythm Heart Sounds: S1 normal and S2 normal GI Inspection: scar (Infraumbilical, linear scars) Palpation: soft, hernia direct inguinal on the right and indirect inguinal on the left and tender in the LLQ and in the RLQ (Most pronounced in the right lower quadrant) Assessment and Plan Assessment and Plan (1) GERD (gastroesophageal reflux disease): Status: Acute Qualifiers: Esophagitis presence: esophagitis presence not specified Qualified Code(s): K21.9 - Gastro-esophageal reflux disease without esophagitis Comment: Patient describes severe reflux that is fearing with ability to tolerate a regular diet. He is dependent on omeprazole to be able to eat at all. No prior history of EGD Plan - Dr. Raphael Spencer MD: EGD under local MAC (2) Abdominal pain: Status: Acute Qualifiers: Abdominal location: right lower quadrant Qualified Code(s): R10.31 - Right lower quadrant pain Comment: Nonspecific right lower quadrant pain (to a much more milder degree left lower quadrant tenderness). No prior scope history. Patient does have a significant history of constipation. Plan - Dr. Raphael Spenecr MD: Plan for colonoscopy under local MAC (3) Nausea & vomiting: Status: Acute Qualifiers: Vomiting Intractability: intractable Vomiting type: unspecified Qualified Code(s): R11.2 - Nausea with vomiting, unspecified Comment: Patient describes vomiting during sleep, based on description I am suspicious for a reflux etiology. I did describe behavioral modification and dietary modifications that may alleviate some of this. Still, EGD is indicated to better characterize the patient's anatomy and perform biopsies for possible H. pylori. Plan - Dr. Raphael Spencer MD: EGD with local MAC (4) Bilateral inguinal hernia without obstruction or gangrene: Status: Acute Qualifiers: Recurrence: recurrent Qualified Code(s): K40.21 - Bilateral inguinal hernia, without obstruction or gangrene, recurrent Comment: Patient with bilateral, fat?containing inguinal hernias per CT imaging. The right-sided hernia would be considered recurrent given his prior anterior repair 36 years ago. Based on the history I collect, I do not suspect this is the primary cause of patient's abdominal pain and I believe an EGD and colonoscopy should take precedence. Once the scopes are complete, and any pathology managed, I would be happy to consider the patient for operative intervention. He would be an ideal candidate for posterior repair that would permit simultaneous correction of his hernias and afford dissection and [place] tissues given his prior anterior repair. Plan - Dr. Raphael Spencer MD: Watchful waiting for now, can reconsider operative intervention once the above scopes are complete (5) Constipation: Status: Acute Qualifiers: Constipation type: other constipation type Qualified Code(s): K59.09 - Other constipation Comment: This sounds like functional constipation, but patient is reporting very long toilet times, some associated GI bleeding, and is in no prior scope despite being older than 50. Plan - Dr. Raphael Spencer MD: Colonoscopy under local MAC (6) Hematochezia: Status: Acute Comment: Patient describes frequent observation of fresh blood but also remarks of some black stools. He describes completing a insurance?requested stool study but states he never heard the outcome of this. Given patient's history with recurrent bleeding, further investigation is warranted. Plan - Dr. Raphael Spencer MD: Colonoscopy under local MAC I have re-examined the patient. There are no clinical changes since date of exam. Patient confirms that his output following his prep yesterday is clear. He denies any questions, plan to proceed with EGD and colonoscopy under local MAC.
--- NOTE | 2021-05-05 06:30 | IMM_PTH ---
PATIENT: BELLO FLOREZ LOC: EN U#:[id number] AGE/SX: 50/M ROOM: RE05/05/[address]: Dr. Raphael Spencer MD : 1970 BED: DIS: 05/05/2021 SPEC #: [id number] RECD: 05/05/21 13:04 STATUS: SUN BRITTA #: [id number] NAHUN: 05/05/21 06:[address]: Raphael Spencer DEPT: IMMUNOHISTOCHEMISTRY RECD BY: Samira Marsh ENTERED: 05/05/21 13:05 SP TYPE: IMMUNO OTHR DR: Dr. Chai Pathak, Tissues: A - Stomach, NOS Procedures: H Pylori (initial) PHYSICIAN & INSTITUTION [place] [id number] SPECIMEN INFORMATION: Tissue Source: A ? Antrum biopsy Clinical Info: GERD, nausea, vomiting, constipation Specimen Number: [id number] CPT code: 82918 METHODOLOGY: Deparaffinized sections of prefer/formalin-fixed tissue or PAP/DQ stained slides are incubated with monoclonal/polyclonal antibodies/oligonucleotide probes. Localization is made via biotin free immunoperoxidase method. Appropriate controls are performed and reacted as expected. Results on target cell population are indicated in the following table: RESULTS: ANTIBODY / CLONE RESULT Block A H Pylori (polyclonal) negative These tests were developed and their performance characteristics determined by [facility]. They may not have been cleared or approved by the U.S. Food and Drug Administration. The FDA has determined that such clearance or approval is not necessary. INTERPRETATION: A. Antrum biopsy: Negative for Helicobacter pylori organisms. SJ:yany 05/09/2021
--- NOTE | 2021-05-05 07:37 | OP.EGD_ITS ---
Patient Name: Alex Lopez Procedure Date: 05/05/2021 6:13 AM Date of : 1970 Age: 50 Procedure: Upper GI endoscopy Indications: Heartburn, Suspected gastro-esophageal reflux disease Providers: Raphael Spencer MD Medicines: See the Anesthesia note for documentation of the administered medications Patient Profile: Refer to note in patient chart for documentation of history and physical. Complications: No immediate complications. Estimated blood loss: Minimal. Procedure: Pre-Anesthesia Assessment: - The anesthesia plan was to use moderate sedation/analgesia (conscious sedation). - The heart rate, respiratory rate, oxygen saturations, blood pressure, adequacy of pulmonary ventilation, and response to care were monitored throughout the procedure. After obtaining informed consent, the endoscope was passed under direct vision. Throughout the procedure, the patient's blood pressure, pulse, and oxygen saturations were monitored continuously. The Endoscope was introduced through the mouth, and advanced to the second part of duodenum. The upper GI endoscopy was accomplished without difficulty. The patient tolerated the procedure well. Scope In: 6:34:26 AM Scope Out: 6:53:56 AM Total Procedure Duration Time 0 hours 19 minutes 30 seconds Findings: The in the duodenum was normal. No biopsies or other specimens were collected for this exam. Patchy mild inflammation characterized by erythema was found in the gastric antrum. Biopsies were taken with a cold forceps for histology. Biopsies were taken with a cold forceps for Helicobacter pylori testing. Estimated blood loss was minimal. A large hiatal hernia was present. No biopsies or other specimens were collected for this exam. LA Grade A (one or more mucosal breaks less than 5 mm, not extending between tops of 2 mucosal folds) esophagitis with no bleeding was found 38 cm from the incisors. Biopsies were taken with a cold forceps for histology. Estimated blood loss was minimal. The Z-line was regular and was found 40 cm from the incisors. Biopsies were taken with a cold forceps for histology. Estimated blood loss was minimal. Impression: - Normal. No specimens collected. - Gastritis. Biopsied. - Large hiatal hernia. No specimens collected. - LA Grade A reflux esophagitis. Biopsied. - Z-line regular, 40 cm from the incisors. Biopsied. Recommendation: - Discharge patient to home (via wheelchair). - Resume regular diet today. - Use Prilosec (omeprazole) 40 mg PO daily today. - Await pathology results. - Continue present medications. Procedure Code(s): --- Professional --- 56545, Esophagogastroduodenoscopy, flexible, transoral; with biopsy, single or multiple Diagnosis Code(s): --- Professional --- K29.70, Gastritis, unspecified, without bleeding K44.9, Diaphragmatic hernia without obstruction or gangrene K21.0, Gastro-esophageal reflux disease with esophagitis R12, Heartburn CPT copyright 2017 [employer]. All rights reserved. The codes documented in this report are preliminary and upon conductor freight review may be revised to meet current compliance requirements. Raphael Spencer MD 05/05/2021 7:37:01 AM This report has been signed electronically. Number of Addenda: 0 Note Initiated On: 05/05/2021 6:13 AM
[2021-05-05 07:38] VITALS: BP 123/87; BP 129/88; PULSE 77; RESP 16; TEMP 35.9; O2SAT 98
--- NOTE | 2021-05-05 07:38 | OP.CCLET_ITS ---
05/05/2021 Chai Pathak [address] [place] [address] Re : Upper GI endoscopy procedure for Alex Lopez Dear Dr. Pathak This procedure was performed on Wednesday, May 05, 2021. My impressions and recommendations are as follows: Impressions : - Normal. No specimens collected. - Gastritis. Biopsied. - Large hiatal hernia. No specimens collected. - LA Grade A reflux esophagitis. Biopsied. - Z-line regular, 40 cm from the incisors. Biopsied. Recommendations : - Discharge patient to home (via wheelchair). - Resume regular diet today. - Use Prilosec (omeprazole) 40 mg PO daily today. - Await pathology results. - Continue present medications. My findings are described in the full procedure note, which is enclosed. If I can be of further assistance, please feel free to contact me at Doctor phone number(s): , Work: . Sincerely, Raphael Spencer MD 05/05/2021 7:37:01 AM This report has been signed electronically.
[2021-05-05 07:42] VITALS: BP 123/87; BP 94/81; PULSE 74; RESP 16; O2SAT 96
--- NOTE | 2021-05-05 07:44 | OP.COLON_ITS ---
Patient Name: Alex Lopez Procedure Date: 05/05/2021 6:55 AM Date of : 1970 Age: 50 Procedure: Colonoscopy Indications: Hematochezia, Melena, Chronic idiopathic constipation Providers: Raphael Spencer MD Medicines: See the Anesthesia note for documentation of the administered medications Patient Profile: Refer to note in patient chart for documentation of history and physical. Last Colonoscopy: none. The patient's first colonoscopy is today. Complications: No immediate complications. Estimated blood loss: None. Procedure: Pre-Anesthesia Assessment: - The anesthesia plan was to use moderate sedation/analgesia (conscious sedation). - The heart rate, respiratory rate, oxygen saturations, blood pressure, adequacy of pulmonary ventilation, and response to care were monitored throughout the procedure. - The anesthesia plan was to use moderate sedation/analgesia (conscious sedation). After I obtained informed consent, the scope was passed under direct vision. Throughout the procedure, the patient's blood pressure, pulse, and oxygen saturations were monitored continuously. The adult colonoscope was introduced through the anus and advanced to the cecum, identified by appendiceal orifice and ileocecal valve. The colonoscopy was technically difficult and complex due to poor bowel prep. Successful completion of the procedure was aided by lavage. The colonoscopy was technically difficult and complex due to a tortuous colon. Successful completion of the procedure was aided by using scope torsion. The patient tolerated the procedure well. Scope In: 6:57:37 AM Scope Withdrawal Time 0 hours 16 minutes 13 seconds Scope Out: 7:27:27 AM Total Procedure Duration Time 0 hours 29 minutes 50 seconds Findings: The retroflexed view of the distal rectum and anal verge was normal and showed no anal or rectal abnormalities. The entire examined colon appeared normal on direct and retroflexion views. Impression: - The distal rectum and anal verge are normal on retroflexion view. - The entire examined colon is normal on direct and retroflexion views. - No specimens collected. Recommendation: - Discharge patient to home (via wheelchair). - Resume regular diet today. - Continue present medications. - Repeat colonoscopy in 10 years for screening purposes. Procedure Code(s): --- Professional --- 67164, Colonoscopy, flexible; diagnostic, including collection of specimen(s) by brushing or washing, when performed (separate procedure) Diagnosis Code(s): --- Professional --- K92.1, Melena (includes Hematochezia) K59.04, Chronic idiopathic constipation CPT copyright 2017 [employer]. All rights reserved. The codes documented in this report are preliminary and upon body repairer review may be revised to meet current compliance requirements. Raphael Spencer MD 05/05/2021 7:44:12 AM This report has been signed electronically. Number of Addenda: 0 Note Initiated On: 05/05/2021 6:55 AM
[2021-05-05 07:45] VITALS: BP 123/87; BP 132/58; PULSE 73; RESP 16; O2SAT 99
--- NOTE | 2021-05-05 07:45 | OP.CCLET_ITS ---
05/12/2021 Chai Pathak [address] [place] [address] Re : Colonoscopy procedure for Alex Uinta Dear Dr. Pathak This procedure was performed on Wednesday, May 05, 2021. My impressions and recommendations are as follows: Impressions : - The distal rectum and anal verge are normal on retroflexion view. - The entire examined colon is normal on direct and retroflexion views. - No specimens collected. Recommendations : - Discharge patient to home (via wheelchair). - Resume regular diet today. - Continue present medications. - Repeat colonoscopy in 10 years for screening purposes. My findings are described in the full procedure note, which is enclosed. If I can be of further assistance, please feel free to contact me at Doctor phone number(s): , Work: . Sincerely, Raphael Spencer MD 05/05/2021 7:44:12 AM This report has been signed electronically.
[2021-05-05 07:51] VITALS: BP 120/92; BP 123/87; PULSE 73; RESP 16; TEMP 36; O2SAT 100
--- NOTE | 2021-05-05 08:13 | SUR.PHASEII ---
Patient had emesis upon arrival to Phase 2. < 30 ml. Clear. No nausea noted. Emesis after procedure in Phase 1. Patient VSS.
[2021-05-05 08:24] VITALS: BP 123/87
== END 2021-05-05 08:31 ==
LOC: EN 05:11 → AC 05:14
PROVIDERS: PCP Family Medicine; Referring Provider Family Medicine; Visit Provider Surgery
PROC: 0DJD8ZZ Inspection of Lower Intestinal Tract, Via Natural or Artificial Opening Endoscopic (ICD-10-PCS; CPT 45378; principal; 2021-05-05 06:25)
DX: K29.70 Gastritis, unspecified, without bleeding (principal); K21.00 Gastro-esophageal reflux disease with esophagitis, without bleeding; K44.9 Diaphragmatic hernia without obstruction or gangrene; K59.04 Chronic idiopathic constipation; I10 Essential (primary) hypertension; E78.5 Hyperlipidemia, unspecified; Z79.899 Other long term (current) drug therapy; Z87.891 Personal history of nicotine dependence
CPT/HCPCS: 43239; 45378; 87426; 88305; 88342; J7120; J2405

== ENCOUNTER 2021-08-11 07:43 | Outpatient (CLI) | payer MEDICAID, SELFPAY ==
--- NOTE | 2021-08-11 07:47 | RAD_ITS ---
STUDY: AIR CONTRAST UPPER GI SERIES and esophagram. REASON FOR EXAM: Male, 51 years old. K21.9 - Gastro-esophageal reflux disease without esophagitis FLUOROSCOPY TIME (if supplied): (48 seconds) minutes/seconds. 26 images were obtained. TECHNIQUE: SINGLE CONTRAST AND AIR CONTRAST FLUOROSCOPIC IMAGES. COMPARISON: None. FINDINGS: The cervical esophagus demonstrates normal motility without aspiration. There is no stricture or extrinsic mass effect. No intraluminal polypoid mass is identified. The thoracic esophagus distends well without stricture or mucosal fold thickening. No mucosal ulcerations are identified. There is no extrinsic mass effect. There are no diverticula. The patient ingested a 12 mm tablet of barium without any difficulty. No hiatal hernia or gastroesophageal reflux was identified. The stomach distends well without mucosal fold thickening or mucosal ulceration. There is no intraluminal mass. The duodenal bulb is freely distensible without deformity or ulceration. The duodenal sweep is normal in position and caliber. RAD/Upper GI w/BA Swallow IMPRESSION: Normal air-contrast upper GI series and esophagram.. Electronically Signed: Ted Quinteros MD at 8:31 EST ,
== END 2021-08-11 23:59 | disposition home or self-care (01) ==
LOC: RAD 07:44
PROVIDERS: PCP Family Medicine; Referring Provider Surgery; Visit Provider Surgery
DX: K21.9 Gastro-esophageal reflux disease without esophagitis (principal); R10.31 Right lower quadrant pain; R11.2 Nausea with vomiting, unspecified
CPT/HCPCS: 74246

== ENCOUNTER → 2021-08-31 08:49 | Day surgery (SDC) | payer MEDICAID, SELFPAY ==
[2021-08-31 09:49] VITALS: BP 171/96; PULSE 79; RESP 16; TEMP 37.3; O2SAT 98
== END ==
PROVIDERS: PCP Family Medicine; Referring Provider Family Medicine; Visit Provider Surgery
PROC: F00ZJWZ Instrumental Swallowing and Oral Function Assessment using Swallowing Equipment (ICD-10-PCS; CPT 43235; principal; 2021-08-31 09:55)
DX: K21.9 Gastro-esophageal reflux disease without esophagitis (principal)
CPT/HCPCS: 91010; 91013; 87426

== ENCOUNTER 2022-01-29 10:08 | Day surgery (SDC) | payer MEDICAID, SELFPAY ==
--- NOTE | 2022-01-19 06:56 | EKG12_ITS ---
Test Reason : PRE OP Blood Pressure : / mmHG Vent. Rate : 075 BPM Atrial Rate : 075 BPM P-R Int : 170 ms QRS Dur : 074 ms QT Int : 350 ms P-R-T Axes : 076 078 059 degrees QTc Int : 390 ms Normal sinus rhythm Normal ECG Confirmed by YOLANDA WILL, KEMAR ([id number]), continuity editor VIVEK SOLANO ([id number]) on 01/22/2022 11:32:40 AM Referred By: Raphael Spencer Confirmed By:RADHA GUERRERO MD
[2022-01-19 07:31] LABS: Hematocrit 43.5 % (40-54); Hemoglobin 14.9 g/dL (13.0-16.5); Mean Corp Hgb Conc 34.3 g/dL (32-36); Mean Corpuscular Hgb 30.3 pg (27.0-32.0); Mean Corpuscular Volume 88.4 fL (80-94); Mean Platelet Vol. 9.6 fl (6.2-12.0); Platelet Count 292 K/mm3 (150-450); RBC Distribution Width CV 13.2 % (11.6-14.6); RBC Distribution Width SD 42.8 fl (35.1-43.9); Red Blood Count 4.92 M/mm3 (4.6-6.2); White Blood Count 6.5 K/mm3 (4.4-11.0)
[2022-01-19 08:05] LABS: Anion Gap 5 (5-15); BUN 18 mg/dL (7-18); BUN/Creat Ratio 18.8 RATIO (10-20); Calcium,Total 9.4 mg/dL (8.5-10.1); Chloride 105 mmol/L (98-107); Creatinine, Serum 0.96 mg/dL (0.70-1.30); EST Glomerular Filtration Rate 87 mL/min (>60); Est Glom Filt Rate - Afr Amer 106 mL/min (>60); Glucose 123 mg/dL (74-106); Potassium 4.3 mmol/L (3.5-5.1); Sodium Level 138 mmol/L (136-145)
[2022-01-29] VITALS (9 sets, daily range): BP systolic 114–164; BP diastolic 50–97; PULSE 75–97; RESP 16–18; TEMP 36.2–37.3; O2SAT 93–99; BMI 28.9
--- NOTE | 2022-01-29 | HERN_PTH ---
PATIENT: BELLO FLOREZ LOC: [facility] U#:[id number] AGE/SX: 51/M ROOM: RE01/29/[address]: Dr. Raphael Spencer MD : 1970 BED: DIS: 01/29/2022 SPEC #: [id number] RECD: 01/29/22 17:23 STATUS: SUN BRITTA #: [id number] NAHUN: 01/29/22 00:[address]: Raphael Spencer DEPT: SURGICAL PATHOLOGY RECD BY: Familia Venegas ENTERED: 01/30/22 11:46 SP TYPE: Hernia OTHR DR: MD Dr. Chai Gomez, DO Tissues: HERNIA Procedures: Surgery Specimen Level III HEADER OPERATION: Lap robotic inguinal hernia repair with mesh PRE-OP DIAGNOSIS: Bilateral inguinal hernia TISSUE SUBMITTED: Left lipoma of cord MICROSCOPIC DIAGNOSIS Left lipoma of cord, biopsy: Mature adipose tissue, consistent with lipoma. SJ:yany 01/31/2022 MICROSCOPIC DESCRIPTION Slides are reviewed. GROSS DESCRIPTION Received in fixative is one container labeled with the patient's name and designated left lipoma of cord. The specimen consists of an irregular piece of adipose tissue measuring 4 x 2.5 x 0.5 cm. Sections reveal yellow adipose cut surfaces without area of hemorrhage, necrosis or cystic degeneration. Ophthalmic Medical Assistant sections are submitted in one cassette. / SJ:yany 01/30/2022 TC:1 CPT: 91486
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
[2022-01-29] MEDS: Lactated Ringers 1,000 ML 15 ML IV (11:15)
[2022-01-29] MEDS: Cefazolin 2 GM in 0.9% Normal Saline 100 ML IV (11:50)
[2022-01-29] MEDS: Bupivacaine 0.25% 30 ML Vial (12:15)
--- NOTE | 2022-01-29 15:45 | OP.PCM_ITS ---
Report of Operation Date of Procedure: 01/29/22 Pre-Operative Diagnosis: Fat-containing bilateral inguinal hernias (recurrent r ight) Post-Operative Diagnosis: 1. Recurrent right-sided direct inguinal hernia 2. Left-sided indirect inguinal hernia with cord lipoma Surgery/Procedure Performed:: Robot-assisted bilateral inguinal hernia repair with mesh Description of Surgical Findings:: ? Right-sided direct defect containing fat ? Left-sided indirect inguinal hernia with associated cord lipoma. Additional fatty structure alongside the medial aspect of the spermatic cord potentially representing a bladder diverticulum ? Left 3D max MID anatomical mesh lot [id number] reference [id number], right 3D max MID anatomic mesh LOT [id number], reference [id number] Surgeon: Raphael Spencer infrastructure manager: Keturah Sierra infrastructure manager: Nory Gross Type of Anesthesia: General/Supplemental Anesthesiologist: Maciel Freeman Specimen's removed: Left cord lipoma Estimated Blood Loss (mL): 15 Description of Procedure: After appropriate identification in the preoperative holding area the patient was brought to the operating room where he was positioned supine on the operating table. Preoperative antibiotics were completed and the patient was administered a general anesthetic. Patient's abdomen was then prepped and draped in usual sterile fashion. Formal timeout followed to confirm patient and procedure. Procedure was begun with an optical entry facilitated by Veress insufflation at Cho's point. Once pneumoperitoneum reached a set point pressure of 15 mmHg a left paramedian incision was made and a 8 mm robotic trocar was placed with a careful Optiview technique. Follow-up laparoscopic investigation revealed no inadvertent injury to the viscera below. A second port was placed a hand's breath right of this index port under laparoscopic visualization. Then the Veress needle was withdrawn and a third and final robotic port was placed through this site. Patient was positioned in slight Trendelenburg and I performed a local block of the bilateral ilioinguinal nerves using 10mL local anesthetic under laparoscopic visualizaiton. The robot was docked in standard fashion. Robotically, a peritoneal flap was created on the right and was bluntly dissected to expose the medial parietal compartment and lateral visceral compartments. Interestingly there was a blue suture that appeared to be a remnant from a prior operation which presented a challenge to easy separation of the peritoneum and intermediate fascia, initially. However, I ultimately entered the proper plane and medially I could visualize the pubic tubercle and Thang's ligament while laterally I extended the dissection down below the level of the ASIS. A fat-containing direct inguinal hernia was visualized. Traction was placed on this protruding fat and selective monopolar energy was applied to free the attachments to the defect in the abdominal wall. The indirect space was examined, but there was no hernia sac above the cord structures when they were splayed out for closer inspection. There was also no cord lipoma visible. Care was taken to mobilize the peritoneal flap further posteriorly and we could clearly visualize the inverted V of the spermatic vessels and the vas deferens- eventually exposing the psoas muscle as well. The peritoneal flap was inspected to ensure that there was no pulling of the cord structures or the viscera deeply over the psoas using the pull test. Then attention was turned to the patient's left side where there was evidence of an indirect hernia. Again, a peritoneal flap was created on this side and dissection was carried down in similar fashion to Thang's ligament medially and laterally over the psoas at the same depth. Here there was an obvious indirect defect. Manual traction was applied to the hernia sac and selective electrocautery was used to separate it from the cord structures inferiorly. Ultimately, I was able to visualize complete reduction of the hernia sac and again performed the pull test to ensure that there was no tenting of structures that may compromise the future mesh lie. Initially with this test there was some medial interference with a fatty structure that grossly appeared like a cord lipoma but on the opposite side (medial) as expected. Not wanting to compromise the lie of the mesh, I attempted to dissect some of this free and was able to clearly visualize the medial aspect of the external iliac vein. The opposite end of this structure appeared to communicate directly with the bladder?potentially representing a bladder diverticulum. Therefore all dissection was ceased and it was evident that the bladder was beginning to interfere with our visualization. On making this observation, I requested intraoperative placement of a Browning catheter which was done using sterile technique by nursing. This resulted in immediate drainage of a large volume (total volume of over 600 mL) of urine. With the bladder decompressed, the visualization was significantly improved. I was able to complete the dissection of the myopectineal orifice 2 cm inferior to the imaginary line continuing from Thang's ligament. Once satisfied, 2X Bard 3D max, size large, medium weight meshes were placed into the abdomen along with suture. Each mesh was positioned within the preperitoneal pocket so that there was good medial and inferior overlap. The left mesh was then tacked to the abdominal wall at the pubic tubercle and laterally in a partial-thickness bite of the abdominal wall using a 3-0 Vicryl suture. The peritoneal flap on the left was then closed with a running 3-0 V-Loc suture taking care to conceal the barbs of the suture beneath the peritoneum. Once the flap closure was complete, I then transitioned to the right side. Mesh was positioned into the preperitoneal space and tacked in similar fashion as had been done on the left side using 3-0 Vicryl. I undertook repair of peritoneal defects with 3-0 Vicryl. During the flap closure I was car eful to watch for curling of the inferior edge of the mesh but did not have this observation. With the peritoneal defects closed, sutures were systematically removed from the peritoneum and the pneumoperitoneum was evacuated before removing the trocars. The port sites were closed at the skin with running 4-0 Monocryl in a subcuticular fashion. Steri-Strips and OpSite's were used as dressings. Patient's testicles were returned to the scrotum and a supportive jockstrap was fitted. Patient was then awoken from anesthetic and transferred to PACU for ongoing recovery. Grafts/Implants Used: Bard 3D max mesh size large medium weight (right and left) Complications None Admit VTE Documentation VTE Present on Admission: Yes VTE Mechan Device Prophylaxis: None VTE Pharm Prophylaxis ordered?: No
--- NOTE | 2022-01-29 15:49 | DCINST_ITS ---
Discharge Instructions Diet Discharge Diet: No restrictions Activity Discharge Activity: May Not Drive (While taking narcotic pain medication) and May Shower Ice area for (Minutes): 20 Lifting Restrictions: No lifting greater than 15 pounds for the next 4 weeks Dressing / Incision Call your doctor if your incision/area has: Continuous Slow Oozing, Increased Pain/ Swelling, Increased Redness, Foul Smelling Discharge and Swelling at the incision site Call your doctor if you observe: Fever of 101 or Higher Change Dressing in: 2 days (Please leave Steri-Strips intact until they fall off spontaneously or are taken off at your follow-up visit) Cleanse incision/area with: Soap & Water and Keep Dressing Clean & Dry Follow Up Care Please Follow Up With: Raphael Spencer MD When: 1 week postop Test Results: Test results from this visit will be discussed in further detail at your follow- up appointment, if applicable. Discharge Plan Admission Primary Reason for Your Visit: Repaired bilateral inguinal hernias Attending Provider: Raphael Spencer Primary Care Provider: Chai Pathak Consulting Providers: Emilio Majano Discharge Orders/Prescriptions Prescriptions: No Action omeprazole 40 mg capsule,delayed release(DR/EC) 40 mg PO DAILY allopurinol 100 mg tablet 100 mg PO DAILY tamsulosin 0.4 mg capsule 0.4 mg PO DAILY Qty: 30 0RF methylprednisolone 4 mg tablets,dose pack 4 mg PO UD PRN (Reason: gout flare up) losartan 50 mg tablet 50 mg PO DAILY Qty: 90 3RF Other Ambulatory Orders: 12 Lead EKG (Routine) Timeframe: [id number] Location: None Selected Ordered By: Dr. Emilio Majano Referrals / Follow Up: Chai Pathak DO [Primary Care Provider] - Disposition Disposition (needs filled in before D/C Order can be placed): Home, Self Care
[2022-01-29] MEDS: oxyCODONE 5 MG Tablet PO (18:48)
== END 2022-01-29 19:48 | disposition home or self-care (01) ==
LOC: SDC 10:08 → AC 10:09
PROVIDERS: Anesthesiology; PCP Family Medicine; Referring Provider Surgery; Visit Provider Surgery
PROC: (CPT 49651; principal; 2022-01-29 11:10)
DX: K40.21 Bilateral inguinal hernia, without obstruction or gangrene, recurrent (principal); D17.6 Benign lipomatous neoplasm of spermatic cord; I25.2 Old myocardial infarction; K21.9 Gastro-esophageal reflux disease without esophagitis; I10 Essential (primary) hypertension; Z79.899 Other long term (current) drug therapy; Z87.891 Personal history of nicotine dependence
CPT/HCPCS: 49651; 49650; S2900; 00840; 88302; 36415; 80048; 85027; 87081; 88304; 93005; J7120; J2405

== ENCOUNTER → 2022-02-08 | Outpatient (CLI) | payer MEDICAID, SELFPAY ==
[2022-02-08 14:57] LABS: Bacteria 0 SEEN /hpf (None Seen); Mucous, Urine 0 SEEN /hpf (<or=2+); Red Blood Cells-Urine 0 SEEN /hpf (0-5); Squamous Epithelial Cells - UA 0 SEEN /hpf (0-5)
[2022-02-08 15:27] LABS: Color, Urine Yellow (Yellow); Glucose, Dipstick Normal (Normal); Ketone-Dipstick Negative (Negative); Leukocyte Esterase-Dipstick 25 /ul (Negative); Nitrite-Dipstick Negative (Negative); Occult Blood-Urine Negative /ul (Negative); Protein-Dipstick Negative (Negative); Specific Gravity, Urine 1.015 (1.002-1.030); Urine Bilirubin Dipstick Negative (Negative); Urine Clarity Clear (Clear); Urine Urobilinogen Normal (Normal)
[2022-02-08 15:43] LABS: White Blood Cells 0-5 SEEN /hpf (0-5)
== END | disposition home or self-care (01) ==
LOC: LAB 14:54
PROVIDERS: PCP Family Medicine; Visit Provider Surgery
DX: R35.1 Nocturia (principal)
CPT/HCPCS: 81001

== ENCOUNTER → 2022-07-03 | Outpatient (CLI) | payer MEDICAID, SELFPAY ==
[2022-07-03 15:12] LABS: Absolute Lymphocyte Count 1.56 X10^3/uL (0.83-4.51); Absolute Neutrophil Count 3.6 X10^3/uL (2.0-7.7); Basophil# 0.04 X10^3/uL; Basophil% 0.7 % (0-1); Eosinophil# 0.15 X10^3/uL; Eosinophils% 2.6 % (0-5); Hematocrit 43.3 % (40-54); Hemoglobin 15.1 g/dL (13.0-16.5); Lymphocyte # 1.56 X10^3/ul (0.83-4.51); Lymphocyte % 26.9 % (19-41); Mean Corp Hgb Conc 34.9 g/dL (32-36); Mean Corpuscular Hgb 30.8 pg (27.0-32.0); Mean Corpuscular Volume 88.2 fL (80-94); Mean Platelet Vol. 10.6 fl (6.2-12.0); Monocyte# 0.41 X10^3/uL; Monocyte% 7.1 % (0-10); NRBC Flagged by Analyzer 0 % (0-5); Neutrophil # 3.61 X10^3/uL (2.7-7.7); Neutrophil % 62.4 % (47-70); Platelet Count 255 K/mm3 (150-450); RBC Distribution Width CV 13.2 % (11.6-14.6); Red Blood Count 4.91 M/mm3 (4.6-6.2); White Blood Count 5.8 K/mm3 (4.4-11.0)
[2022-07-03 15:31] LABS: PSA,Total - Annual Screen 0.38 ng/mL (0.00-4.00); Uric Acid 5.7 mg/dL (3.5-7.2)
== END | disposition home or self-care (01) ==
LOC: BFHLAB 11:44
PROVIDERS: PCP Family Medicine; Visit Provider Family Medicine
DX: M10.9 Gout, unspecified (principal); Z51.81 Encounter for therapeutic drug level monitoring; Z12.5 Encounter for screening for malignant neoplasm of prostate
CPT/HCPCS: 84153; 36415; 84550; 85025; G0103

== ENCOUNTER → 2022-07-10 | Outpatient (CLI) | payer MEDICAID, SELFPAY ==
--- NOTE | 2022-07-10 10:37 | RAD_ITS ---
STUDY: XR Shoulder Min 2 Views REASON FOR EXAM: Male, 52 years old. PAIN TECHNIQUE: XR Shoulder Min 2 Views RIGHT COMPARISON: None. FINDINGS: Normal glenohumeral articulation. Normal acromioclavicular joint. Normal acromion. Normal humeral head and visualized proximal humerus. The soft tissue structures are unremarkable. Normal visualized pulmonary apex. RAD/Shoulder min 2 Views IMPRESSION: There are no acute findings of the shoulder. Electronically Signed: Casimiro Barnard MD at 18:08 EST ,
--- NOTE | 2022-07-10 10:37 | RAD_ITS ---
STUDY: XR Shoulder Min 2 Views REASON FOR EXAM: Male, 52 years old. PAIN TECHNIQUE: XR Shoulder Min 2 Views LEFT COMPARISON: None. FINDINGS: Normal glenohumeral articulation. Normal acromioclavicular joint. Normal acromion. Normal humeral head and visualized proximal humerus. There is periarticular soft tissue calcification consistent with a calcific tendinitis. Normal visualized pulmonary apex. RAD/Shoulder min 2 Views IMPRESSION: There is periarticular soft tissue calcification consistent with a calcific tendinitis. Electronically Signed: Casimiro Barnard MD at 18:09 EST ,
== END | disposition home or self-care (01) ==
LOC: RAD 10:36
PROVIDERS: PCP Family Medicine; Visit Provider Family Medicine
DX: M25.511 Pain in right shoulder (principal); M25.512 Pain in left shoulder
CPT/HCPCS: 73030

== ENCOUNTER → 2022-07-20 | Outpatient (CLI) | payer MEDICAID, SELFPAY ==
--- NOTE | 2022-07-20 16:05 | RAD_ITS ---
STUDY: X-RAY - THORACIC SPINE REASON FOR EXAM: Male, 52 years old. Chronic pain in the mid chest and posterior mid back between shoulder blades. TECHNIQUE: 3 view(s) of the thoracic spine were obtained. COMPARISON: None. FINDINGS: Normal kyphosis of the thoracic spine. There is no substantial scoliosis. There is demineralization of the thoracic spine with endplate spondylosis. There is multilevel disc space narrowing of the thoracic spine. There is no evidence of acute fracture or loss of vertebral axial height. The soft tissue structures are unremarkable. RAD/Thoracic Spine 3 Views IMPRESSION: Degenerative changes of the thoracic spine without acute abnormality. Electronically Signed: Terence Haley DO at 16:29 EST ,
== END | disposition home or self-care (01) ==
LOC: RAD 15:55
PROVIDERS: PCP Family Medicine; Visit Provider Anesthesiology Pain Medicine
DX: M51.34 Other intervertebral disc degeneration, thoracic region (principal)
CPT/HCPCS: 72072

== ENCOUNTER → 2022-08-27 | Outpatient (CLI) | payer MEDICAID, SELFPAY ==
--- NOTE | 2022-08-27 06:21 | MRI_ITS ---
EXAM: MR RIGHT UPPER EXTREMITY WITHOUT INTRAVENOUS CONTRAST, SHOULDER CLINICAL INDICATION: pain, rule out cuff tear TECHNIQUE: Multiplanar and multisequence MR images of the right shoulder without intravenous contrast. This report was created using [employer] report [employer] technology. COMPARISON: None. FINDINGS: TENDONS: SUPRASPINATUS: Moderate supraspinatus tendinosis. No supraspinatus tendon tear. INFRASPINATUS: Mild to moderate infraspinatus tendinosis. No infraspinatus tendon tear. SUBSCAPULARIS: Unremarkable. Intact. TERES MINOR: Unremarkable. Intact. BICEPS BRACHII, LONG HEAD: Intact long head of the biceps tendon which is normal in position and appearance. The extra-articular biceps tendon is in the bicipital groove. LIGAMENTS: GLENOHUMERAL: Unremarkable. Intact. MUSCLES: Unremarkable. No rotator cuff muscle atrophy. FLUID: Unremarkable. No joint effusion. No fluid in the subacromial/subdeltoid bursa. CARTILAGE: Unremarkable. Articular cartilage intact. GLENOID LABRUM: . Anterior/anterior inferior labral irregularity/signal alteration raising concern for labral tear(s). Suggest further investigation with MR arthrography for confirmation and further characterization. BONES/JOINTS: At least moderate hypertrophic degenerative changes of the acromioclavicular joint with moderate mass effect on the underlying soft tissues. Subcoracoid recess contains an intra-articular ossific body measuring 1.6 cm. Small amount of glenohumeral joint fluid with synovitis at the axillary pouch Type II acromion with curved undersurface. No subacromial enthesophyte. No os acromiale. No fracture. MRI/Upper Ext Joint Only(Routine) IMPRESSION: 1. Anterior/anterior inferior labral irregularity/signal alteration raising concern for labral tear(s). Suggest further investigation with MR arthrography for confirmation and further characterization. 2. Subcoracoid recess contains an intra-articular ossific body measuring 1.6 cm. 3. No rotator cuff tear. Electronically Signed: Pernell Ovalles MD at 14:49 EST ,
--- NOTE | 2022-08-27 06:21 | MRI_ITS ---
EXAM: MR LEFT UPPER EXTREMITY WITHOUT INTRAVENOUS CONTRAST, SHOULDER CLINICAL INDICATION: pain rule out cuff tear TECHNIQUE: Multiplanar and multisequence MR images of the left shoulder without intravenous contrast. This report was created using [employer] report [employer] technology. COMPARISON: None. FINDINGS: TENDONS: SUPRASPINATUS: Mild to moderate supraspinatus tendinosis. No supraspinatus tendon tear. INFRASPINATUS: Mild to moderate infraspinatus tendinosis. No tendon tearing. SUBSCAPULARIS: Unremarkable. Intact. TERES MINOR: Unremarkable. Intact. BICEPS BRACHII, LONG HEAD: Moderate amount of glenohumeral joint fluid with synovitis at the axillary pouch. Fluid extends down the biceps tendon sheath along with intra-articular ossific body measuring 1 cm at the level of the neck of the proximal humerus anteriorly. The extra-articular biceps tendon is in the bicipital groove. LIGAMENTS: GLENOHUMERAL: Unremarkable. Intact. MUSCLES: Muscles are normal. No rotator cuff muscle atrophy. FLUID: Unremarkable. No joint effusion. No subacromial/subdeltoid bursitis. CARTILAGE: Unremarkable. Articular cartilage intact. GLENOID LABRUM: Anterior/anterior inferior labral tearing suspected. This can be confirmed and further catheterized with MR arthrography. Degenerative appearance of the superior labrum. BONES/JOINTS: Moderate hypertrophic degenerative changes acromioclavicular joint with mild to moderate mass effect on the underlying soft tissues. 1.2 cm ossific body located within a recess of the anterior aspect of the glenohumeral joint, intimate with the anterior cortex of the glenoid. Type II acromion with curved undersurface. No subacromial enthesophyte or coracoacromial ligament thickening. Rotator interval is normal. OTHER SOFT TISSUES: Unremarkable. No rotator interval edema. TUBES, LINES AND DEVICES: None. MRI/Upper Ext Joint Only(Routine) IMPRESSION: 1. Anterior/anterior inferior labral tearing suspected. This can be confirmed and further catheterized with MR arthrography. Degenerative appearance of the superior labrum. 2. Moderate amount of glenohumeral joint fluid with synovitis at the axillary pouch. Fluid extends down the biceps tendon sheath along with intra-articular ossific body measuring 1 cm at the level of the neck of the proximal humerus anteriorly. Additional slightly larger intra-articular ossific body along the subcoracoid recess of the glenohumeral joint. 3. No rotator cuff tear. Electronically Signed: Pernell Ovalles MD at 14:04 EST ,
--- NOTE | 2022-08-27 16:37 | NEURO_ITS ---
NCS and/or EMG Patient Report Ordering Doctor: Chai Pathak DATE OF SERVICE: 08/27/22 Indication: Bilateral hand pain, numbness, and weakness for approximately 3 years. History of prior foot drop, cervical stenosis. Findings: Nerve conduction studies were performed in the right and left upper extremities. The right median motor study recording the abductor pollicis brevis showed a borderline amplitude, prolonged distal latency and slowed conduction velocity. The right ulnar motor study recording the abductor digiti minimi showed a reduced amplitude (though submax), prolonged distal latency and borderline conduction velocity. Focal slowing was present across the elbow. The right ulnar motor study recording the first dorsal interosseous showed a reduced amplitude, prolonged distal latency and borderline conduction velocity. Focal slowing was present across the elbow. The right median sensory response recording digit two showed a reduced amplitude, prolonged latency and slowed conduction velocity. The right ulnar sensory response recording digit five showed a reduced amplitude, prolonged latency and slowed conduction velocity. The right radial sensory response recording over the extensor snuff box showed a normal amplitude, borderline latency and slowed conduction velocity. The left median motor study recording the abductor pollicis brevis showed a borderline amplitude, prolonged distal latency and slowed conduction velocity. The left ulnar motor study recording the abductor digiti minimi showed a reduced amplitude, prolonged distal latency and borderline conduction velocity. Focal slowing was present across the elbow. The left ulnar motor study recording the first dorsal interosseous showed a reduced amplitude, prolonged distal latency and borderline conduction velocity. Focal slowing was present across the elbow. The left median sensory response recording digit two showed a reduced amplitude, prolonged latency and slowed conduction velocity. The left ulnar sensory response recording digit five was absent. The left radial sensory response recording over the extensor snuff box showed a normal amplitude, borderline latency and slowed conduction velocity. Needle EMG of the right upper extremity and cervical paraspinal muscles was performed. Active denervation was seen in the first dorsal interosseous and abductor pollicis brevis muscles. Motor units in the first dorsal interosseous and abductor pollicis brevis muscles were long duration, large amplitude, and polyphasic with reduced recruitment. All other motor unit morphology, activation and recruitment patterns were normal. Needle EMG of the left upper extremity was omitted given the findings on the right and would not alter the electrical diagnosis. Impression: This is a markedly abnormal and complex study. There is electrophysiologic evidence of median neuropathy across both wrists. The pathophysiology is predominantly demyelinating, though there is evidence of secondary axonal loss. These findings are compatible with the clinical diagnosis of bilateral carpal tunnel syndrome. 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 The location of the lesion is both across the wrist (Guyon's canal) and across the elbow. Given the above findings, the slowing seen at non-entrapment sites, and the history of recurrent foot drop, the patient may have an underlying hereditary disorder of myelination (i.e. 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 Clinical correlation is recommended. Bravo Allen D.O. Multi Select Codes Neurology Neurology Interp Codes: 00891-28 Musc test done w/n test comp (interp) and 09519-45 [facility] cnd test 13/> studies (interp)
== END | disposition home or self-care (01) ==
PROVIDERS: PCP Family Medicine; Referring Provider Orthopaedic Surgery Sports Medicine; Visit Provider Orthopaedic Surgery Sports Medicine
DX: M79.601 Pain in right arm (principal); M79.602 Pain in left arm
CPT/HCPCS: 73221; 95886; 95913

== ENCOUNTER 2023-02-01 07:00 | Outpatient (RCR) | payer OTHER, MEDICAID, SELFPAY ==
--- NOTE | 2022-09-11 10:45 | HP.PTEVAL ---
Patient's Visit Information BELLO FLOREZ is a 52 year old M referred to Physical Therapy by Dr. Raphael Chawla MD with a diagnosis of Left Knee Scope- Menisectomy. Date of Evaluation: 09/11/22 Physical Therapist: Natasha Hampton DPT - Visit Plan Frequency: 2x /Week Duration: 4 Weeks Plan: Focus on LE ROM, LE and core strength/stabilization, flex, proprioception and functional mobility. HEP Given IE: Bolster extn, heel slide, quad set, SLR, hamstring stretch - Subjective Patient reports that he had a left knee scope in Jul- he thinks it was the . He hurt it in December he was walking fast and he ended up feeling it give way. After surgery he went home the same day. He reports that its achy and crunchy. The pain is currently around the knee the cap and down the patellar tendon. Worst: 6-7/10 Agg: sitting bent, hanging down or climbing stairs, uneven ground. Eases: elevation, ice. Best: 0/10 Sleep: doesn't sleep well. Describes the pain as constant inflammation achy pain. No pain that radiates- he has gout- he has had no changes in his toes with N/T. He has had left ankle reconstruction and this is his 3rd surgery on this knee- and he has also had an ACL repair on this knee. Plans to wear a knee brace. 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 He wants to make sure he is strong enough to get back to work. PMHx/Meds: no changes since saw ortho 09/07/22 - Objective Posture: FH, RS- can correct but does not maintain. Gait: antalgic- decreased stance on the left LE with poor heel/toe pattern due to decreased extension HR/TR: can lift toes SLS: 5 sec with increased sway. Observation: incision healing well no s/s of infection. ROM: 10-110 Strength: Knee: Flexion: 14 Extn: 30 Ankle: 4+/5. Flex: HS: severe, Solues: severe. Hamstring: severe Sensation: WNL to gross touch. Palpation: tender along medial and lateral joint line - Balance/Special Test Scores Lower Extremity Functional Score: 27 - Goals Goal 1:: Patient will be I with HEP and progression Goal Time Frame: 4-6 Weeks Goal 2:: Patient will amb >300 feet with a normalized gait pattern Goal Time Frame: 4-6 Weeks Goal 3:: Patient will asc/desc 8 recip with no HR Goal Time Frame: 4-6 Weeks Goal 4:: Patient will report 80% improvement Goal Time Frame: 4-6 Weeks - Rehabilitation Potential Physical Therapy Diagnosis: Patient presents with hypomobility s/p left meniscectomy- he has decreased LE and core strength/stabilization, ROM, flex, proprioception and muscular endurance leading to abnormal gait and decreased participation in ADL's. Rehabilitation Potential: Good - Anticipated Interventions Patient/Client Instruction: Educate patient on: Benefits of Fitness Program Therapeutic Exercise to Include: Strength training, Endurance training, Balance training, Coordination, Agility training, Body mechanics, Postural training, Flexibilty training, Gait and locomotor training, Neuromotor development, Passive ROM, Active ROM, Dynamic Lumbar Stabilization, Scapular Strength/Stabilization For the Purpose of:: To improve muscle performance and motor function TENS: Yes Cryotherapy (ice pack, ice massage): Yes Thermo therapy (hot pack): Yes Ultrasound (thermal/non thermal): Yes Thank you for the opportunity to evaluate your patient. For Medicare and Medicare HMO plans, please review the plan of care and approve it. It will need to be FAXED BACK to us at [phone] for Medicare purposes. For Medicare only, by signing this I certify the plan of care. Please let me know if there are questions or concerns regarding this plan of care. Physician Signature: Date:
--- NOTE | 2022-10-17 08:00 | HP.PTREVAL ---
Dr. Raphael Chawla MD, It has been my pleasure to treat BELLO FLOREZ over the last 12 visits for Left Knee Scope- Menisectomy. Please see the progress note below for an update on the physical therapy plan of care! Subjective: Patient reports that his knee is getting better- its getting stronger- he still has sharp/shooting pains they are not as continuous. He is not fully extended yet but working on it. Some of the exercises make it sore later in the day. Worst in the last few days 12/01 but he can get to be pain free. He feels that he is 35-40 % better- he went to see the MD and he wrote more PT. RTW date is 12/14/22. Objective/Function: Posture: FH, RS- can correct but does not maintain. Gait: slightly antalgic- decreased stance on the left LE with decreased heel/toe pattern slight toe out pattern HR/TR: able with UE A SLS: 3-5 sec but right leg evangelina as he puts pressure through ROM: 5-115- pain with overpressure into extension and flexion Strength: Knee: Flexion: 12.4 Extn: 19.3 Ankle: 4+/5. Flex: HS: severe, Solues: severe. Hamstring: severe Sensation: WNL to gross touch. Palpation: tender along medial and lateral joint line. Stairs: asc/desc 8' recip- asc he does not use a rail and uses a jump through pattern- descending he has poor eccentric control Plan Plan: 10/17/22: New C9 starts 10/27/22- Continue 2x a week for 6 weeks-60 min apts- continue to progress towards goals and return to work activities. IE: Focus on LE ROM, LE and core strength/stabilization, flex, proprioception and functional mobility. HEP Given IE: Bolster extn, heel slide, quad set, SLR, hamstring stretch. Balance/Gait/Functional tests - Balance/Special Test Scores Lower Extremity Functional Score: 29 Goals Goal 1:: Patient will be I with HEP and progression Goal Time Frame: 4-6 Weeks Goal Progress: Progressing Goal 2:: Patient will amb >300 feet with a normalized gait pattern Goal Time Frame: 4-6 Weeks Goal Progress: Progressing Goal 3:: Patient will asc/desc 8 recip with no HR Goal Time Frame: 4-6 Weeks Goal Progress: Progressing Goal 4:: Patient will report 80% improvement Goal Time Frame: 4-6 Weeks Goal Progress: Progressing Anticipated Interventions Patient/Client Instruction: Educate patient on: Benefits of Fitness Program Therapeutic Exercise to Include: Strength training, Endurance training, Balance training, Coordination, Agility training, Body mechanics, Postural training, Flexibilty training, Gait and locomotor training, Neuromotor development, Passive ROM, Active ROM, Dynamic Lumbar Stabilization, Scapular Strength/Stabilization For the Purpose of:: To improve muscle performance and motor function TENS: Yes Cryotherapy (ice pack, ice massage): Yes Thermo therapy (hot pack): Yes Ultrasound (thermal/non thermal): Yes Please do not hesitate to contact me at [phone] by phone or if you have questions or concerns regarding this new plan of care! Sincerely, LEANDRA CarsonT
--- NOTE | 2023-02-28 11:48 | HP.PTDCSUM ---
Discharge Summary D/C summary: It has been my pleasure to treat BELLO FLOREZ referred by Dr. Raphael Chawla MD, with the diagnosis of Left Knee Scope- Menisectomy for a total of 32 visit(s). Discharge Date: Please see the following information for a summary of their discharge status. Subjective Subjective: Doing some better Will see on 02/07 walking extended ,squatting/kneeling painful Difficulty with stairs Pain Left knee: Pain Intensity (Out of 10): 5 Mid-back: Pain Intensity (Out of 10): 5 Overall Improvement % Improvement: 50 Objective Objective/Function: Posture: knee flexed Gait: slightly antalgic- decreased stance on the left LE with decreased heel/toe pattern slight toe out pattern ROM: 5-20- pain Strength: Knee: Flexion: 23.4 Extn: 29.4 Ankle: 4+/5. Goals Goal 1:: Patient will be I with HEP and progression Goal Progress: Progressing Goal 2:: Patient will amb >300 feet with a normalized gait pattern Goal Progress: Progressing Goal 3:: Patient will asc/desc 8 recip with no HR Goal Progress: Progressing Goal 4:: Patient will report 80% improvement Goal Progress: Progressing Plan Plan: D/C D/C Information d/c sentence: If there are questions or concerns regarding this patient's physical therapy, please feel free to call me at [phone]. Thank you for the referral of this patient. Sincerely, Dennis Norris, PT, Cert MDT, OCS Balance/Gait/Functional tests Balance/Special Test Scores Lower Extremity Functional Score: 29 Improvement % Improvement: 50
== END 2023-02-01 19:00 | disposition home or self-care (01) ==
LOC: PT 07:00
PROVIDERS: PCP Family Medicine; Referring Provider Orthopaedic Surgery; Visit Provider Orthopaedic Surgery
DX: Z47.89 Encounter for other orthopedic aftercare (principal)
CPT/HCPCS: 97014; 97110; 97140; 97162; 97164; 97530; G0283

== ENCOUNTER → 2023-03-30 | Outpatient (CLI) | payer OTHER, SELFPAY ==
--- NOTE | 2023-03-30 06:57 | MRI_ITS ---
STUDY: MRI LEFT KNEE REASON FOR EXAM: Male, 52 years old. Pain, medial side. TECHNIQUE: Standardized fat and water weighted pulse sequences were obtained in all 3 orthogonal planes. COMPARISON: Left knee radiographs dated 03/07/2023. FINDINGS: There is a horizontal-oblique undersurface tear of the posterior horn of the medial meniscus (sagittal PD series 5 images 28-29). Normal hyaline cartilage of the medial femorotibial compartment. Normal medial femoral condyle and tibial plateau. Normal medial collateral ligamentous complex (MCL). Normal distal semimembranosus, gracilis and semitendinosus tendons. Normal lateral meniscus. Normal hyaline cartilage of the lateral femorotibial compartment. Normal lateral femoral condyle and tibial plateau. Normal proximal tibiofibular articulation. Normal lateral collateral (fibular) ligament. Normal popliteus tendon. Normal biceps femoris tendon. There are postoperative changes related to ACL reconstruction. Intact ACL graft. Normal posterior cruciate ligament (PCL). There is low-grade chondromalacia along the medial patellar facet (axial STIR series 10 images 22-23). Congruent patellofemoral articulation. Normal medial and lateral patellar retinaculum. Normal quadriceps tendon. Normal patellar tendon. There is linear fibrotic scarring of Hoffa''s fat pad, consistent with postsurgical changes from prior arthroscopic portal placements. There is a tiny joint effusion. There is a tiny popliteal cyst. The soft tissues are unremarkable. The otherwise visualized osseous structures are unremarkable. MRI/Lower Ext Joint Only (Routine) IMPRESSION: Horizontal-oblique undersurface tear of the posterior horn of the medial meniscus. 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 Tiny joint effusion with a tiny popliteal cyst. Intact ACL graft. Electronically Signed: Richi Dietz MD at 9:04 EDT ,
== END | disposition home or self-care (01) ==
LOC: MRI 08:55
PROVIDERS: PCP Family Medicine; Visit Provider Orthopaedic Surgery Sports Medicine
DX: M25.562 Pain in left knee (principal)
CPT/HCPCS: 73721

== ENCOUNTER 2023-08-28 07:52 | Day surgery (SDC) | payer OTHER, SELFPAY ==
[2023-08-28] VITALS (11 sets, daily range): BP systolic 114–126; BP diastolic 64–84; PULSE 75–101; RESP 14–16; TEMP 36.2–36.7; O2SAT 91–99; BMI 28.8
--- OUTSIDE RECORDS SUMMARY | 2023-08-28 08:16 | XMS RPT_ITS | CCD ---
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 Name Role Phone Unavailable Primary Care Provider Unavailabl e TESTMICHAEL, AMMON Referring Unavailable TESTRAKE, AMMON Attending Unavailable TESTRAKE, AMMON Attending Unavailable TESTRAKE, AMMON Referring Unavailable TESTRAKE, AMMON Attending Unavailable TESTRAKE, AMMON Referring Unavailable TESTRAKE, AMMON Attending Unavailable Cammy WILL, Raphael Castle Attending Unavailab shannan AA NO PCP, NO PCP Primary Care Unavailable Raphael Chawla MD Admitting Unavailab COLEEN Merlos Primary Care Unavailable CENE VICE PRESIDENT OF INSTRUCTIONJAZMÍN Admitting Unavailable CENE VICE PRESIDENT OF INSTRUCTION, JAZMÍN Jose Attending Unavailable Cammy WILL, Raphael Castle Attending Unavailab shannan [facility] N[facility]SE, COLEEN Stephenson Consulting Unavailable COLEEN HERNANDEZ Primary Care Unavailable Raphael Chawla MD Admitting Unavailab shannan MAYS DOREBA Consulting Unavailable Allergies Allergy Classification Reported Allergen(s) Allergy Type Date of Onset Reaction(s) Facility (4 sources) Codeine; Translations: [CODEINE] Drug Allergy 04-22-2019 [facility] (4 sources) traMADol; Translations: [TRAMADOL] Drug Allergy 04-22-2019 [facility] (3 sources) Chlorzoxazone; Translations: [CHLORZOXAZONE] Drug Allergy 01-29-2019 [facility] (3 sources) hydroCHLOROthiaz tucker; Translations: [HYDROCHLOROTHIA ZIDE] [facility] Lisinopril; Translations: [LISINOPRIL] Drug All[facility] Codeine Drug Allergy [facility] (1 source) traMADol Drug Allergy [facility] Medications Completed/Discontinued Medications Medication Drug Class(es) Dates Sig (Normalized) Sig (Original) allopurinol 100 mg oral tablet (3 sources) Xanthine Oxidase Inhibitor Start: 03-24-2021 allopurinol (ZYLOPRIM) 100 mg tablet Take 100 mg by mouth. 0 03/24/2021 Active Problems Active Problems Problem Classification Problem Date Documented Date Episodic/Chronic E Codes: Natural/environment (1 source) Overexertion from prolonged static or awkward postures, initial encounter; Translations: [OVEREXERT PROLNG STAT/AWK PST INIT] Onset: 08-23-2022 Episodic E Codes: Unspecified (1 source) Civilian activity done for income or pay; Translations: [CIVILIAN ACTV DONE FOR INCOME/PAY] Onset: 08-23-2022 Episodic Essential hypertension (1 source) Essential (primary) hypertension; Translations: [ESSENTIAL PRIMARY HYPERTENSION] Onset: 08-14-2022 Chronic Joint disorders and dislocations; trauma-related (3 sources) Other tear of medial meniscus, current injury, left knee, initial encounter; Translations: [Complex tear of medial meniscus, current injury, left knee, initial encounter] Onset: 02-08-2022 Episodic Open wounds of extremities (1 source) Open wound of toe; Translations: [Unspecified open wound of unspecified toe(s) without damage to nail, initial encounter] Episodic Osteoarthritis (1 source) Unilateral primary osteoarthritis, left knee; Translations: [UNI PRIM OSTEOARTHRITIS LT KNEE] Onset: 08-23-2022 Chronic Other skin disorders (2 sources) Ingrowing toenail; Translations: [Ingrowing nail] Episodic Past or Other Problems Problem Classification Problem Date Documented Da te Episodic/Chronic Sprains and strains (1 source) Sprain of medial collateral ligament of left knee, initial encounter; Translations: [SPRAIN MCL LEFT KNEE INITIAL ENC] Onset: 02-08-2022 Episodic Results Test Name Value Interpretation Reference Range Facil ity Encounters Encounter Date Encounter Type Care Provider Facility Start: 08-17-2022 End: 08-17-2022 ambulatory Raphael Chawla MD [facility] Start: 08-14-2022 Encounter for other preprocedural examination JAZMÍN BOWENS CNP [facility] Start: 08-10-2022 End: 08-11-2022 ambulatory COLEEN ORDAZ [facility] Start: 04-18-2022 End: 04-18-2022 ambulatory AMMON CHARLES Facility:[facility] Start: 04-18-2022 End: 04-18-2022 Patient encounter procedure Ammon Charles Work Phone: Podiatry Plan of Treatment Date Care Activity Detail Author Start: 11-08-2025 LIPID SCREEN LIPID SCREEN [facility] Start: 11-09-2023 DIABETES SCREEN DIABETES SCREEN [facility] Start: 02-22-2022 Influenza vaccination INFLUENZA (#1) [facility] Start: 06-24-2021 DEPRESSION ASSESSMENT DEPRESSION ASS ESSMENT [facility] Start: 2019 SHINGRIX VACCINE (1 of 2) SHINGRIX V ACCINE (1 of 2) [facility] Start: 2014 COLOGUARD (FIT-DNA) COLOGUARD (FIT-D NA) [facility] Start: 2014 Colonoscopy COLONOSCOPY [facility] Start: 2014 COLORECTAL CANCER SCREENING COLORECTAL CANCER SCREENING [facility] Start: [address] COLONOGRAPHY [facility] Start: 2014 FECAL OCCULT BLOOD FECAL OCCULT BLOO D [facility] Start: 2014 SIGMOIDOSCOPY SIGMOIDOSCOPY [facility] Start: 1988 Urine microalbumin profile DTAP,TDAP ,TD (1 - Tdap) [facility] Start: 1987 HEPATITIS C SCREENING HEPATITIS C SC REENING [facility] Start: 1987 HIV SCREENING HIV SCREENING [facility] Start: 1981 Adult depression scr eening assessment DEPRESSION SCREENING [facility] Start: 1969 COVID-19 VACCINE (#1) COVID-19 VACCI NE (#1) [facility] Start: 1969 HEPATITIS B (1 of 3 - 3-dose series) HEPATITIS B (1 of 3 - 3-dose series) [facility] Payers Date Payer Category Payer Medicaid [facility] MEDICAID [facility] COMMUN[employer] PLAN MEDICAID [facility] [id number] 2018-Present [phone] [address] [place] [address] Medicaid [id number] 2018 Medicaid [id number] 1969 Unknown [id number] 1969 Unknown [id number] 1969 Unknown [id number] 1959 Unknown [id number] 1959 Unknown [id number] Social History Date Type Detail Facility Start: 03-06-2022 Tobacco smoking stat [facility] Ex-smoker [facility] Work Phone: End: 09-27-2008 History of tobacco use Current smoker [facility] Work Phone: End: 09-27-2008 History of tobacco use Cigarette Smoker [facility] Work Phone: Start: 03-06-2022 Tobacco use and exposure Smokeless tobacco non-user [facility] Work Phone: Start: 03-06-2022 End: 04-18-2022 Alcohol intake Ex-drinker (finding) [facility] Start: 1970 Sex Assigned At Male [facility] Start: 02-24-2022 End: 04-18-2022 Exposure to SARS-CoV-2 (event) Not sure [facility] Work Phone: Clinical Notes 03-06-2022 to 04-18-2022 Patient InstructionsMatthew Testrake - 04/18/2022 8:09 AM Rebel Duarte RN - 04/18/2022 8:02 AM Robert Meléndez LPN - 04/03/2022 8:54 AM EDAbdullahi Testrake - 04/03/2022 8:12 AM EDT Note Date & Type Note Facility 04-18-2022 Note HNO ID: [id number] Author: Ammon Charles Service: ? Author Type: Physician Type: Progress Notes Filed: 04/18/2022 8:17 AM Note Text: FOLLOW UP PODIATRIC OFFICE VISIT Chief Complaint: This 51 year old who presents for follow up:total nail matrixectomy Patient presents to clinic for follow-up total nail matrixectomy Patient is doing well overall Did experience some redness so started taking left over amoxicillin and that is helping He did drop some machinery on the toe yesterday so it is a little sensitive Denies pus PAIN EVALUATION 04/18/2022 0803 Pain Level: 5 Pain Location: Toe Description: Sharp Duration Amount of Time: 2 Duration Units: Weeks Frequency: Continuous Intervention/Comfort measure: Reposition;Relaxation;Distract ions No results found for: HBA1C PCP: No primary care provider on file. No past medical history on file. Current Outpatient Medications Medication Sig omeprazole (PRILOSEC) 40 mg capsule Take 40 mg by mouth once daily. amoxicillin (POLYMOX, AMOXIL) 500 mg capsule tamsulosin (FLOMAX) 0.4 mg Take 0.4 mg by mouth daily at bedtime. gabapentin (NEURONTIN) 300 mg capsule Take 300 mg by mouth three times daily. allopurinol (ZYLOPRIM) 100 mg tablet Take 100 mg by mouth. losartan (COZAAR) 50 mg tablet Take 50 mg by mouth once daily. fluticasone propionate (FLONASE ALLERGY RELIEF NASAL) Use in the nose. lisinopril-hydrochlorothiazide (PRINZIDE,ZESTORETIC) 20-12.5 mg per tablet Take 1 tablet by mouth once daily. (Patient not taking: No sig reported) No current facility-administered medications for this visit. ALLERGIES Allergen Reactions Hydrochlorothiazide GI Upset Lisinopril GI Upset Chlorzoxazone Hives Codeine Unknown Tramadol Dystonia No past surgical history on file. Physical Exam: OBJECTIVE: Constitutional: Pt is a well developed 51 year old male who is alert, oriented, cooperative and in no apparent distress. Eyes: Following during examination. No redness or drainage. Respiratory: RR normal and nonlabored. Even breathing. No evidence of distress. Psychology: Patient is engaged during conversation. Normal affect and mood. Does not appear depressed or anxious. NVSI unchanged from previous visit. Dermatological: Left hallux nail bed appears to be healing without drainage Slight redness present but improves with elevation, likely due to inflammation Musculoskeletal/Orthopaedic: Patient has minimal pain to palpation of left hallux ASSESSMENT: (S91.109A) Open wound of toe, initial encounter (primary encounter diagnosis) PLAN: Patient wound appears to be improving without signs of infection Slight redness present but improves with elevation. This is likely more inflamed Offered antibiotic as precaution but patient has elected to just finish out what he has left Continue with soaking until the toe is healed Call if any issues arise. Patient is happy with outcome. Ammon Charles DPM [facility] 04-18-2022 Note HNO ID: [id number] Author: Etelvina Duarte RN Service: ? Author Type: Registered Nurse Type: Progress Notes Filed: 04/18/2022 8:17 AM Note Text: AMB ROOMING INTAKE FLOWSHEET DATA Pain Pain Level: 5 Pain Location: Toe Description: Sharp Duration Amount of Time: 2 Duration Units: Weeks Frequency: Continuous Intervention/Comfort measure: Reposition, Relaxation, Distractions Patient presents with: Left Great Toe - Established Patient, Follow Up, total matrixectomy Patient states that a few days ago he noticed the toe was getting red and sensitive. Had a few amoxicillin left so started taking them. Has noticed an improvement. [facility] 04-18-2022 Instructions Ammon Charles - 04/18/2022 8:13 AM EDT Your wound appears to be healing nicely Continue with local wound care and soaking for another week or so or until toe is completely dry Call if any issues arise. documented in this encounter [facility] 04-18-2022 History of Presen t illness Narrative FOLLOW UP PODIATRIC OFFICE VISIT Chief Complaint: This 51 year old who presents for follow up:total nail matrixectomy Patient presents to clinic for follow-up total nail matrixectomy Patient is doing well overall Did experience some redness so started taking left over amoxicillin and that is helping He did drop some machinery on the toe yesterday so it is a little sensitive Denies pus PAIN EVALUATION 04/18/2022 0803 Pain Level: 5 Pain Location: Toe Description: Sharp Duration Amount of Time: 2 Duration Units: Weeks Frequency: Continuous Intervention/Comfort measure: Reposition;Relaxation;Distract ions No results found for: HBA1C PCP: No primary care provider on file. No past medical history on file. Current Outpatient Medications Medication Sig omeprazole (PRILOSEC) 40 mg capsule Take 40 mg by mouth once daily. amoxicillin (POLYMOX, AMOXIL) 500 mg capsule tamsulosin (FLOMAX) 0.4 mg Take 0.4 mg by mouth daily at bedtime. gabapentin (NEURONTIN) 300 mg capsule Take 300 mg by mouth three times daily. allopurinol (ZYLOPRIM) 100 mg tablet Take 100 mg by mouth. losartan (COZAAR) 50 mg tablet Take 50 mg by mouth once daily. fluticasone propionate (FLONASE ALLERGY RELIEF NASAL) Use in the nose. lisinopril-hydrochlorothiazide (PRINZIDE,ZESTORETIC) 20-12.5 mg per tablet Take 1 tablet by mouth once daily. (Patient not taking: No sig reported) No current facility-administered medications for this visit. ALLERGIES Allergen Reactions Hydrochlorothiazide GI Upset Lisinopril GI Upset Chlorzoxazone Hives Codeine Unknown Tramadol Dystonia No past surgical history on file. Physical Exam: OBJECTIVE: Constitutional: Pt is a well developed 51 year old male who is alert, oriented, cooperative and in no apparent distress. Eyes: Following during examination. No redness or drainage. Respiratory: RR normal and nonlabored. Even breathing. No evidence of distress. Psychology: Patient is engaged during conversation. Normal affect and mood. Does not appear depressed or anxious. NVSI unchanged from previous visit. Dermatological: Left hallux nail bed appears to be healing without drainage Slight redness present but improves with elevation, likely due to inflammation Musculoskeletal/Orthopaedic: Patient has minimal pain to palpation of left hallux ASSESSMENT: (S91.109A) Open wound of toe, initial encounter (primary encounter diagnosis) PLAN: Patient wound appears to be improving without signs of infection Slight redness present but improves with elevation. This is likely more inflamed Offered antibiotic as precaution but patient has elected to just finish out what he has left Continue with soaking until the toe is healed Call if any issues arise. Patient is happy with outcome. Ammon Charles DPM AMB ROOMING INTAKE FLOWSHEET DATA Pain Pain Level: 5 Pain Location: Toe Description: Sharp Duration Amount of Time: 2 Duration Units: Weeks Frequency: Continuous Intervention/Comfort measure: Reposition, Relaxation, Distractions Patient presents with: Left Great Toe - Established Patient, Follow Up, total matrixectomy Patient states that a few days ago he noticed the toe was getting red and sensitive. Had a few amoxicillin left so started taking them. Has noticed an improvement. documented in this encounter [facility] 04-03-2022 Note HNO ID: [id number] Author: Caridad Meléndez LPN Service: ? Author Type: LICENSED NURSE Type: Progress Notes Filed: 04/03/2022 12:37 PM Note Text: UNIVERSAL PROTOCOL / SAFETY CHECKLIST Procedure to be Performed: total matrixectomy of left hallux Sign In: A Moment of CARE was completed. Personnel directly involved with the procedure wore the appropriate PPE (Personal Protective Equipment). No special equipment needed. Patient/Surrogate Stated/Verified: PATIENT VERIFIED(optional for EMERGENT procedures): Patient name, Date of , Relevant allergies, and The intended procedure Time Out Communication: Intended patient and procedure match the source documents. Consent documented and matches the intended procedure. Relevant labs, photos, and/or imaging studies have been reviewed. Correct side/site marked and visible. Medications required for procedure verified. No fire risk assessment and interventions applicable. No implant(s) inserted. Sign Out: SIGN OUT (optional for EMERGENT procedures): No specimen collected. All instruments, equipment, possible retained foreign bodies accounted for. Post-procedure follow-up management communicated and Plan of Care Visit completed when applicable. Caridad Meléndez LPN [facility] 04-03-2022 Note HNO ID: [id number] Author: Ammon Charles Service: ? Author Type: Physician Type: Progress Notes Filed: 04/03/2022 12:37 PM Note Text: FOLLOW UP PODIATRIC OFFICE VISIT Chief Complaint: This 51 year old who presents for ingrowing toenail of left hallux Patient presents to clinic with complaint of ingrowing toenail of left hallux Patient has pain to left hallux and would like to proceed with total nail removal He had procedure on right hallux and did well. No issues on right foot. PAIN EVALUATION No data found in the last 1 encounters. No results found for: HBA1C PCP: No primary care provider on file. No past medical history on file. Current Outpatient Medications Medication Sig omeprazole (PRILOSEC) 40 mg capsule Take 40 mg by mouth once daily. tamsulosin (FLOMAX) 0.4 mg Take 0.4 mg by mouth daily at bedtime. gabapentin (NEURONTIN) 300 mg capsule Take 300 mg by mouth three times daily. allopurinol (ZYLOPRIM) 100 mg tablet Take 100 mg by mouth. losartan (COZAAR) 50 mg tablet Take 50 mg by mouth once daily. fluticasone propionate (FLONASE ALLERGY RELIEF NASAL) Use in the nose. amoxicillin (POLYMOX, AMOXIL) 500 mg capsule take 1 capsule by mouth three times a day for 7 days (Patient not taking: Reported on 04/03/2022) lisinopril-hydrochlorothiazide (PRINZIDE,ZESTORETIC) 20-12.5 mg per tablet Take 1 tablet by mouth once daily. (Patient not taking: No sig reported) No current facility-administered medications for this visit. ALLERGIES Allergen Reactions Hydrochlorothiazide GI Upset Lisinopril GI Upset Chlorzoxazone Hives Codeine Unknown Tramadol Dystonia No past surgical history on file. Physical Exam: OBJECTIVE: Constitutional: Pt is a well developed 51 year old male who is alert, oriented, cooperative and in no apparent distress. Eyes: Following during examination. No redness or drainage. Respiratory: RR normal and nonlabored. Even breathing. No evidence of distress. Psychology: Patient is engaged during conversation. Normal affect and mood. Does not appear depressed or anxious. Vascular: DP and Pt pulses are audible and palpable Dermatological: Left great toenail is ingrown. No signs of infection. Musculoskeletal/Orthopaedic: Patient has pain to palpation of left great toenail ASSESSMENT: (L60.0) Ingrowing toenail (primary encounter diagnosis) PLAN: Discussed ingrowing toenail of left hallux No signs of ifnection Patient elected to proceed with total nail matrixectomy Discussed r/b/a to procedure. He consents to proceed with total nail matrixectomy. Offered partial but he wants total Offered pvr prior. He elected to pursue today. Discussed risks of toenail procedure not limited to infection, pain, swelling, bleeding, painful scarring, phenol burn, recurrence, need for revised procedure. Patient consented to proceed. Patient was properly identified by name and procedure. The left hallux was then injected with 3 cc of 1% lidocaine plain. An additional 2 cc of 1% lidocaine was injected. The toe was then prepped and draped in the usual aseptic technique. A digital tournicot was applied to the toe. The entire nail was then freed and removed. Careful inspection was performed to assure no remaining spicule present. 3 applications of phenol were then administered x 30 seconds each followed by alcohol rinse. Sterile dressing was then applied consisting of amerigel, guaze, david and coban. Tournicot was removed and hyperemic response was noted. Patient tolerated well. Patient will f/u in 2 weeks. Ammon Charles DPM [facility] 04-03-2022 Note HNO ID: [id number] Author: Etelvina Duarte RN Service: ? Author Type: Registered Nurse Type: Progress Notes Filed: 04/03/2022 12:37 PM Note Text: Patient presents with: Left Foot - Established Patient, Pain, ingrown toenail Patient presents for Left Hallux ingrown toenail. [facility] 04-03-2022 History of Presen t illness Narrative UNIVERSAL PROTOCOL / SAFETY CHECKLIST Procedure to be Performed: total matrixectomy of left hallux Sign In: A Moment of CARE was completed. Personnel directly involved with the procedure wore the appropriate PPE (Personal Protective Equipment). No special equipment needed. Patient/Surrogate Stated/Verified: PATIENT VERIFIED(optional for EMERGENT procedures): Patient name, Date of , Relevant allergies, and The intended procedure Time Out Communication: Intended patient and procedure match the source documents. Consent documented and matches the intended procedure. Relevant labs, photos, and/or imaging studies have been reviewed. Correct side/site marked and visible. Medications required for procedure verified. No fire risk assessment and interventions applicable. No implant(s) inserted. Sign Out: SIGN OUT (optional for EMERGENT procedures): No specimen collected. All instruments, equipment, possible retained foreign bodies accounted for. Post-procedure follow-up management communicated and Plan of Care Visit completed when applicable. Caridad Meléndez LPN FOLLOW UP PODIATRIC OFFICE VISIT Chief Complaint: This 51 year old who presents for ingrowing toenail of left hallux Patient presents to clinic with complaint of ingrowing toenail of left hallux Patient has pain to left hallux and would like to proceed with total nail removal He had procedure on right hallux and did well. No issues on right foot. PAIN EVALUATION No data found in the last 1 encounters. No results found for: HBA1C PCP: No primary care provider on file. No past medical history on file. Current Outpatient Medications Medication Sig omeprazole (PRILOSEC) 40 mg capsule Take 40 mg by mouth once daily. tamsulosin (FLOMAX) 0.4 mg Take 0.4 mg by mouth daily at bedtime. gabapentin (NEURONTIN) 300 mg capsule Take 300 mg by mouth three times daily. allopurinol (ZYLOPRIM) 100 mg tablet Take 100 mg by mouth. losartan (COZAAR) 50 mg tablet Take 50 mg by mouth once daily. fluticasone propionate (FLONASE ALLERGY RELIEF NASAL) Use in the nose. amoxicillin (POLYMOX, AMOXIL) 500 mg capsule take 1 capsule by mouth three times a day for 7 days (Patient not taking: Reported on 04/03/2022) lisinopril-hydrochlorothiazide (PRINZIDE,ZESTORETIC) 20-12.5 mg per tablet Take 1 tablet by mouth once daily. (Patient not taking: No sig reported) No current facility-administered medications for this visit. ALLERGIES Allergen Reactions Hydrochlorothiazide GI Upset Lisinopril GI Upset Chlorzoxazone Hives Codeine Unknown Tramadol Dystonia No past surgical history on file. Physical Exam: OBJECTIVE: Constitutional: Pt is a well developed 51 year old male who is alert, oriented, cooperative and in no apparent distress. Eyes: Following during examination. No redness or drainage. Respiratory: RR normal and nonlabored. Even breathing. No evidence of distress. Psychology: Patient is engaged during conversation. Normal affect and mood. Does not appear depressed or anxious. Vascular: DP and Pt pulses are audible and palpable Dermatological: Left great toenail is ingrown. No signs of infection. Musculoskeletal/Orthopaedic: Patient has pain to palpation of left great toenail ASSESSMENT: (L60.0) Ingrowing toenail (primary encounter diagnosis) PLAN: Discussed ingrowing toenail of left hallux No signs of ifnection Patient elected to proceed with total nail matrixectomy Discussed r/b/a to procedure. He consents to proceed with total nail matrixectomy. Offered partial but he wants total Offered pvr prior. He elected to pursue today. Discussed risks of toenail procedure not limited to infection, pain, swelling, bleeding, painful scarring, phenol burn, recurrence, need for revised procedure. Patient consented to proceed. Patient was properly identified by name and procedure. The left hallux was then injected with 3 cc of 1% lidocaine plain. An additional 2 cc of 1% lidocaine was injected. The toe was then prepped and draped in the usual aseptic technique. A digital tournicot was applied to the toe. The entire nail was then freed and removed. Careful inspection was performed to assure no remaining spicule present. 3 applications of phenol were then administered x 30 seconds each followed by alcohol rinse. Sterile dressing was then applied consisting of amerigel, guaze, david and coban. Tournicot was removed and hyperemic response was noted. Patient tolerated well. Patient will f/u in 2 weeks. Ammon Charles DPM Patient presents with: Left Foot - Established Patient, Pain, ingrown toenail Patient presents for Left Hallux ingrown toenail. documented in this encounter [facility] 04-03-2022 Instructions Ammon Charles - 04/03/2022 8:26 AM EDT Post-Op Nail Instructions Minimize activity until the anesthesia wears off (about 2-8 hours). Increase activity to tolerance Remove bandage tomorrow Soak affected toe/foot in epsom salts for 15-20 minutes twice daily After soaking, apply antibiotic ointment (OTC Neosporin) to affected toe and re bandage OTC Ibuprofen if having pain, provided you have no allergies or intolerance to NSAIDS Mild drainage, redness, and blood is expected, but if you expeirence severe pain, increase in drainage, swelling, or red streaking please contact our office immediately Feel free to contact office as well if you have any questions/concerns [phone], ask for Podiatry Nurse documented in this encounter [facility] 03-21-2022 Note HNO ID: [id number] Author: Ammon Charles Service: ? Author Type: Physician Type: Progress Notes Filed: 03/23/2022 9:00 PM Note Text: FOLLOW UP PODIATRIC OFFICE VISIT Chief Complaint: This 51 year old who presents for follow up:ingrowing toenail toenail s/p revised matrixectomy Patient presents to clinic for follow-up revised matrixectomy of right hallux medial nail border Patient denies any pain or drainage He continues with local wound care Patient is interested in possibly pursuing matrixectomy of the left hallux PAIN EVALUATION 03/21/2022 0817 Pain Level: 2 Pain Location: Toe Description: Other: See comment tender Duration Amount of Time: 2 Duration Units: Weeks Frequency: Continuous Intervention/Comfort measure: Reposition;Relaxation No results found for: HBA1C PCP: No primary care provider on file. No past medical history on file. Current Outpatient Medications Medication Sig omeprazole (PRILOSEC) 40 mg capsule Take 40 mg by mouth once daily. amoxicillin (POLYMOX, AMOXIL) 500 mg capsule take 1 capsule by mouth three times a day for 7 days tamsulosin (FLOMAX) 0.4 mg Take 0.4 mg by mouth daily at bedtime. gabapentin (NEURONTIN) 300 mg capsule Take 300 mg by mouth three times daily. allopurinol (ZYLOPRIM) 100 mg tablet Take 100 mg by mouth. losartan (COZAAR) 50 mg tablet Take 50 mg by mouth once daily. fluticasone propionate (FLONASE ALLERGY RELIEF NASAL) Use in the nose. lisinopril-hydrochlorothiazide (PRINZIDE,ZESTORETIC) 20-12.5 mg per tablet Take 1 tablet by mouth once daily. (Patient not taking: No sig reported) No current facility-administered medications for this visit. ALLERGIES Allergen Reactions Codeine Unknown Tramadol Dystonia No past surgical history on file. Physical Exam: OBJECTIVE: Constitutional: Pt is a well developed 51 year old male who is alert, oriented, cooperative and in no apparent distress. Eyes: Following during examination. No redness or drainage. Respiratory: RR normal and nonlabored. Even breathing. No evidence of distress. Psychology: Patient is engaged during conversation. Normal affect and mood. Does not appear depressed or anxious. NVSI unchanged from previous visit. Dermatological: Right hallux medial nail border is now healed without signs of infection and no signs of recurrence at this time No signs of infection to left hallux Musculoskeletal/Orthopaedic: Patient has no pain to palpation of b/l hallux ASSESSMENT: (S91.109A) Open wound of toe, initial encounter (primary encounter diagnosis) PLAN: Patient right hallux appears stable, healed without signs of infection He can f/u as needed He is interested in pursuing toenail procedure on the left hallux. He can schedule at his convenience. Ammon Charles DPM [facility] 03-21-2022 Note HNO ID: [id number] Author: Caridad Meléndez LPN Service: ? Author Type: LICENSED NURSE Type: Progress Notes Filed: 03/23/2022 9:00 PM Note Text: AMB ROOMING INTAKE FLOWSHEET DATA Pain Pain Level: 2 Pain Location: Toe Description: Other: See comment (tender) Duration Amount of Time: 2 Duration Units: Weeks Frequency: Continuous Intervention/Comfort measure: Reposition, Relaxation Patient presents with: Left Great Toe - Established Patient, Ingrown Toenail Right Great Toe - Established Patient, Follow Up, Ingrown Toenail 2 week follow up of post matrixectomy, right hallux Patient states he possible might want to do a procedure on left hallux. Caridad Meléndez LPN [facility] 03-06-2022 Note HNO ID: [id number] Author: Ammon Charles Service: ? Author Type: Physician Type: Progress Notes Filed: 03/07/2022 8:00 AM Note Text: UNIVERSAL PROTOCOL / SAFETY CHECKLIST Procedure to be Performed: revised matrixectomy, right hallux Sign In: A Moment of CARE was completed. Personnel directly involved with the procedure wore the appropriate PPE (Personal Protective Equipment). No special equipment needed. Patient/Surrogate Stated/Verified: PATIENT VERIFIED(optional for EMERGENT procedures): Patient name, Date of , Relevant allergies, and The intended procedure Time Out Communication: Intended patient and procedure match the source documents. Consent documented and matches the intended procedure. No relevant labs, photos, and/or imaging studies were applicable for review. Correct side/site marked and visible. Medications required for procedure verified. No fire risk assessment and interventions applicable. No implant(s) inserted. Sign Out: SIGN OUT (optional for EMERGENT procedures): No specimen collected. All instruments, equipment, possible retained foreign bodies accounted for. Post-procedure follow-up management communicated and Plan of Care Visit completed when applicable. Caridad Meléndez LPN [facility] 03-06-2022 Note HNO ID: [id number] Author: Ammon Charles Service: ? Author Type: Physician Type: Progress Notes Filed: 03/07/2022 8:00 AM Note Text: Initial Podiatric Office Visit: Chief Complaint: This 51 year old male who presents with chief complaint:right great toe pain HPI Patient presents to clinic for evaluation of his right great toe Patient complains of small spicule in site of prior toenail removal. He does have pain especially when the nail catches on his skin. He is here to discuss options. PAIN EVALUATION 03/06/2022 1450 Pain Level: 5 Pain Location: Toe Description: Sore Duration Amount of Time: 8 Duration Units: Months Frequency: Continuous Intervention/Comfort measure: Reposition;Relaxation No results found for: HBA1C PCP: No primary care provider on file. No past medical history on file. Current Outpatient Medications Medication Sig omeprazole (PRILOSEC) 40 mg capsule Take 40 mg by mouth once daily. amoxicillin (POLYMOX, AMOXIL) 500 mg capsule take 1 capsule by mouth three times a day for 7 days tamsulosin (FLOMAX) 0.4 mg Take 0.4 mg by mouth daily at bedtime. gabapentin (NEURONTIN) 300 mg capsule Take 300 mg by mouth three times daily. allopurinol (ZYLOPRIM) 100 mg tablet Take 100 mg by mouth. losartan (COZAAR) 50 mg tablet Take 50 mg by mouth once daily. fluticasone propionate (FLONASE ALLERGY RELIEF NASAL) Use in the nose. lisinopril-hydrochlorothiazide (PRINZIDE,ZESTORETIC) 20-12.5 mg per tablet Take 1 tablet by mouth once daily. (Patient not taking: Reported on 03/06/2022) No current facility-administered medications for this visit. ALLERGIES Allergen Reactions Codeine Unknown Tramadol Dystonia No past surgical history on file. No family history on file. Social History Tobacco Use Smoking status: Former Types: Cigarettes Quit date: 09/27/2008 Years since quittin.4 Smokeless tobacco: Never Substance Use Topics Alcohol use: Not Currently REVIEW OF SYSTEMS GENERAL: Negative for Malaise, significant weight loss, fever RESPIRATORY: Negative for cough, wheezing and shortness of breath CARDIOVASCULAR: Negative for chest pain, leg swelling and palpitations GI: Negative for abdominal discomfort, blood in stools or black stools and change in bowel habits : Negative for dysuria, frequency and incontinence MUSCULOSKELETAL: Negative for joint pain or swelling, back pain, and muscle pain. SKIN: Negative for lesions, rash, and itching. HEMATOLOGY/LYMPHOLOGY Negative for prolonged bleeding, bruising easily, and swollen nodes. ENDOCRINE: Negative for cold or heat intolerance, polyuria, polydipsia and goiter. NEURO: negative Physical Exam: Constitutional: Pt is a well developed 51 year old male who is alert, oriented and cooperative Eyes: Following during examination. No redness or drainage. Respiratory: RR normal and nonlabored. Even breathing. No evidence of distress or shortness of breath. Psychology: Patient is engaged during conversation. Normal affect and mood. Does not appear depressed or anxious during encounter. Vascular: Dorsalis pedis and posterior tibial pulses palpable as b/l Capillary Fill time < 5 seconds to digits 1-5 b/l Skin temperature warm to warm proximal to distal b/l Hair growth present to digits Neurological: intact light touch/epicritic sensation b/l intact protective sensation no significant neurological deficits Dermatological: Right hallux has entire nail plate absence except for small spicule noted to medial nail border. No signs of infection. Left hallux nail does appear normal without signs of infection. Webspaces clean and dry 1-4 b/l. Skin appears well hydrated and supple. good color, texture, turgor. No open lesions present. No callosities present. Musculoskeletal/Orthopaedic: Patient has pain to palpation of right hallux medial nail border Radiographs: n/a ASSESSMENT: (L60.0) Ingrowing toenail (primary encounter diagnosis) PLAN: 1. Patient has recurrent nail spicule of right hallux medial nail border. The remaining nail is successfully removed. Discussed optiosn not limited to monitoring and debrided as needed vs revised matrixectomy. This patient has elected for revised matrixectomy and would like to proceed with this today Discussed risks of toenail procedure not limited to infection, pain, swelling, bleeding, painful scarring, recurrence, need for revised procedure. Patient consented to proceed. Patient was properly identified by name and procedure. The right hallux was then injected with 3 cc of 1% lidocaine plain. The toe was then prepped and draped in the usual aseptic technique. A digital tournicot was applied to the toe. The medial border was then freed and removed. Careful inspection was performed to assure no remaining spicule present. 3 applications of phenol were then administered x 30 seconds each followed by alcohol rinse. Sterile dressing (more content not included)... [facility] 03-06-2022 Note HNO ID: [id number] Author: Caridad Meléndez LPN Service: ? Author Type: LICENSED NURSE Type: Progress Notes Filed: 03/07/2022 8:00 AM Note Text: AMB ROOMING INTAKE FLOWSHEET DATA Pain Pain Level: 5 Pain Location: Toe Description: Sore Duration Amount of Time: 8 Duration Units: Months Frequency: Continuous Intervention/Comfort measure: Reposition, Relaxation Patient presents with: Right Great Toe - Established Patient, Follow Up, Pain Caridad Meléndez LPN [facility] 03-06-2022 History of Presen t illness Narrative UNIVERSAL PROTOCOL / SAFETY CHECKLIST Procedure to be Performed: revised matrixectomy, right hallux Sign In: A Moment of CARE was completed. Personnel directly involved with the procedure wore the appropriate PPE (Personal Protective Equipment). No special equipment needed. Patient/Surrogate Stated/Verified: PATIENT VERIFIED(optional for EMERGENT procedures): Patient name, Date of , Relevant allergies, and The intended procedure Time Out Communication: Intended patient and procedure match the source documents. Consent documented and matches the intended procedure. No relevant labs, photos, and/or imaging studies were applicable for review. Correct side/site marked and visible. Medications required for procedure verified. No fire risk assessment and interventions applicable. No implant(s) inserted. Sign Out: SIGN OUT (optional for EMERGENT procedures): No specimen collected. All instruments, equipment, possible retained foreign bodies accounted for. Post-procedure follow-up management communicated and Plan of Care Visit completed when applicable. Caridad Meléndez LPN Initial Podiatric Office Visit: Chief Complaint: This 51 year old male who presents with chief complaint:right great toe pain HPI Patient presents to clinic for evaluation of his right great toe Patient complains of small spicule in site of prior toenail removal. He does have pain especially when the nail catches on his skin. He is here to discuss options. PAIN EVALUATION 03/06/2022 1450 Pain Level: 5 Pain Location: Toe Description: Sore Duration Amount of Time: 8 Duration Units: Months Frequency: Continuous Intervention/Comfort measure: Reposition;Relaxation No results found for: HBA1C PCP: No primary care provider on file. No past medical history on file. Current Outpatient Medications Medication Sig omeprazole (PRILOSEC) 40 mg capsule Take 40 mg by mouth once daily. amoxicillin (POLYMOX, AMOXIL) 500 mg capsule take 1 capsule by mouth three times a day for 7 days tamsulosin (FLOMAX) 0.4 mg Take 0.4 mg by mouth daily at bedtime. gabapentin (NEURONTIN) 300 mg capsule Take 300 mg by mouth three times daily. allopurinol (ZYLOPRIM) 100 mg tablet Take 100 mg by mouth. losartan (COZAAR) 50 mg tablet Take 50 mg by mouth once daily. fluticasone propionate (FLONASE ALLERGY RELIEF NASAL) Use in the nose. lisinopril-hydrochlorothiazide (PRINZIDE,ZESTORETIC) 20-12.5 mg per tablet Take 1 tablet by mouth once daily. (Patient not taking: Reported on 03/06/2022) No current facility-administered medications for this visit. ALLERGIES Allergen Reactions Codeine Unknown Tramadol Dystonia No past surgical history on file. No family history on file. Social History Tobacco Use Smoking status: Former Types: Cigarettes Quit date: 09/27/2008 Years since quittin.4 Smokeless tobacco: Never Substance Use Topics Alcohol use: Not Currently REVIEW OF SYSTEMS GENERAL: Negative for Malaise, significant weight loss, fever RESPIRATORY: Negative for cough, wheezing and shortness of breath CARDIOVASCULAR: Negative for chest pain, leg swelling and palpitations GI: Negative for abdominal discomfort, blood in stools or black stools and change in bowel habits : Negative for dysuria, frequency and incontinence MUSCULOSKELETAL: Negative for joint pain or swelling, back pain, and muscle pain. SKIN: Negative for lesions, rash, and itching. HEMATOLOGY/LYMPHOLOGY Negative for prolonged bleeding, bruising easily, and swollen nodes. ENDOCRINE: Negative for cold or heat intolerance, polyuria, polydipsia and goiter. NEURO: negative Physical Exam: Constitutional: Pt is a well developed 51 year old male who is alert, oriented and cooperative Eyes: Following during examination. No redness or drainage. Respiratory: RR normal and nonlabored. Even breathing. No evidence of distress or shortness of breath. Psychology: Patient is engaged during conversation. Normal affect and mood. Does not appear depressed or anxious during encounter. Vascular: Dorsalis pedis and posterior tibial pulses palpable as b/l Capillary Fill time < 5 seconds to digits 1-5 b/l Skin temperature warm to warm proximal to distal b/l Hair growth present to digits Neurological: intact light touch/epicritic sensation b/l intact protective sensation no significant neurological deficits Dermatological: Right hallux has entire nail plate absence except for small spicule noted to medial nail border. No signs of infection. Left hallux nail does appear normal without signs of infection. Webspaces clean and dry 1-4 b/l. Skin appears well hydrated and supple. good color, texture, turgor. No open lesions present. No callosities present. Musculoskeletal/Orthopaedic: Patient has pain to palpation of right hallux medial nail border Radiographs: n/a ASSESSMENT: (L60.0) Ingrowing toenail (primary encounter diagnosis) PLAN: 1. Patient has recurrent nail spicule of right hallux medial nail border. The remaining nail is successfully removed. Discussed optiosn not limited to monitoring and debrided as needed vs revised matrixectomy. This patient has elected for revised matrixectomy and would like to proceed with this today Discussed risks of toenail procedure not limited to infection, pain, swelling, bleeding, painful scarring, recurrence, need for revised procedure. Patient consented to proceed. Patient was properly identified by name and procedure. The right hallux was then injected with 3 cc of 1% lidocaine plain. The toe was then prepped and draped in the usual aseptic technique. A digital tournicot was applied to the toe. The medial border was then freed and removed. Careful inspection was performed to assure no remaining spicule present. 3 applications of phenol were then administered x 30 seconds each followed by alcohol rinse. Sterile dressing was then applied consisting of amerigel, guaze, david and coban. Tournicot was removed and hyperemic response was noted. Patient tolerated well. Patient will f/u in 2 weeks. 2. Discussed ingrowing tendency of left hallux. No signs of infection. If he were interested, we could do partial vs total nail matrixectomy of left hallux in future. Patient wishes to monitor for now Ammon Charles DPM Podiatry [address] [facility] [address] Dept: [phone] Dept AMB ROOMING INTAKE FLOWSHEET DATA Pain Pain Level: 5 Pain Location: Toe Description: Sore Duration Amount of Time: 8 Duration Units: Months Frequency: Continuous Intervention/Comfort measure: Reposition, Relaxation Patient presents with: Right Great Toe - Established Patient, Follow Up, Pain Caridad Meléndez LPN documented in this encounter [facility] 03-06-2022 Instructions Ammon Charles - 03/06/2022 3:15 PM EDT Post-Op Nail Instructions Minimize activity until the anesthesia wears off (about 2-8 hours). Increase activity to tolerance Remove bandage tomorrow Soak affected toe/foot in epsom salts for 15-20 minutes twice daily After soaking, apply antibiotic ointment (OTC Neosporin) to affected toe and re bandage OTC Ibuprofen if having pain, provided you have no allergies or intolerance to NSAIDS Mild drainage, redness, and blood is expected, but if you expeirence severe pain, increase in drainage, swelling, or red streaking please contact our office immediately Feel free to contact office as well if you have any questions/concerns [phone], ask for Podiatry Nurse documented in this encounter [facility] Diagnosis Ingrowing toenail- Primary Ingrowing nail [facility] Diagnosis Open wound of toe, initial encounter- Primary documented in this encounter [facility] Summary Purpose Family History No Family History Records FoundNo Family History Records Found Advance Directives No Advanced Directives Records FoundNo Advanced Directives Records Found Additional Source Comments Source Comments (unrecognize d section and content) In the event this informatio n is protected by the Federal Confidentiality of Alcohol and Drug Abuse Patient Records regulations: The Federal rules restrict any use of the information to criminally investigate or prosecute any alcohol or drug abuse patient.[facility] the event this information is protected by the Federal Confidentiality of Alcohol and Drug Abuse Patient Records regulations: The Federal rules restrict any use of the information to criminally investigate or prosecute any alcohol or drug abuse patient.[facility] the event this information is protected by the Federal Confidentiality of Alcohol and Drug Abuse Patient Records regulations: The Federal rules restrict any use of the information to criminally investigate or prosecute any alcohol or drug abuse patient.[facility] Reason for Visit (unrecogniz ed section and content) Reason Comments Established Patient Pain ingrown toenail Reason Comments Established Patient Follow Up total matrixectomy (unrecognized sect ion and content) No Status Records FoundNo Status Records Found INFORMATION SOURCE (unrecogn ized section and content) DATE CREATED AUTHOR AUTHOR'S NITA FLORESRUFUS 09/05/2022 [facility] FOR RECORDS PERTAINING TO PATIENTS WHO ARE OR HAVE BEEN ENROLLED IN A CHEMICAL DEPENDENCY/SUBSTANCEABUSE PROGRAM, SOME INFORMATION MAY BE OMITTED. This clinical summary was aggregated from multiple sources. Caution should be exercised in using it in the provision of clinical care. This summary normalizes information from multiple sources, and as a consequence, information in this document may materially change the coding, format and clinical context of patient data. In addition, data may be omitted in some cases. CLINICAL DECISIONS SHOULD BE BASED ON THE PRIMARY CLINICAL RECORDS. [facility] [employer] provides no warranty or guarantee of the accuracy or completeness of information in this document.
[2023-08-28] MEDS: Lactated Ringers 1,000 ML 15 ML IV (08:50)
--- NOTE | 2023-08-28 09:06 | HP.PCM_ITS ---
HPI - General HPI Narrative BELLO FLOREZ, is a 53 M who presents for left knee arthroscopy, medial meniscus repair or possible partial medial meniscectomy. No changes to history and physical exam. Risks alternatives benefits discussed as well as postoperative instructions and narcotic counseling. Left knee marked. Patient understands no further questions or concerns. MR#: [id number] Acct: [id number] Name: BELLO FLOREZ Rep #: [id number] : 1970 Provider: Dr. Rod Eli MD Age/Sex: 53/M Location: [facility] [place] Status: Signed Intake Vital Signs 01/29/2210:46 Height 5 ft 6 in Intake Visit Reasons: LEFT KNEE Chief Complaint: 6wk f/u Accompanied by: Self Is patient in pain?: Yes Pain scale (1-10): 5 Allergies codeine Allergy (Severe, Verified 08/12/23 08:33) Anaphylaxischlorzoxazone [From Parafon Forte] Allergy (Verified 08/12/23 08:33) Hiveshydrochlorothiazide Adverse Reaction (Intermediate, Verified 08/12/23 08:33) GI upsetlisinopril Adverse Reaction (Intermediate, Verified 08/12/23 08:33) GI upsettramadol Adverse Reaction (Verified 08/12/23 08:33) Nausea Medications losartan 50 mg tablet 50 mg PO DAILY #90 tabs 10/24/20 [Rx Confirmed 08/12/23] allopurinol 100 mg tablet 100 mg PO DAILY gout 03/24/21 [History Confirmed 08/12/23] omeprazole 40 mg capsule,delayed release 40 mg PO DAILY GERD 03/24/21 [History Confirmed 08/12/23] gabapentin 300 mg capsule 300 mg PO TID #90 caps 02/08/22 [Rx Confirmed 08/12/23] amlodipine 5 mg tablet 5 mg PO DAILY 07/31/22 [History Confirmed 08/12/23] [facility] Medical History Abdominal pain Back pain Bilateral carpal tunnel syndrome Bilateral inguinal hernia Calcific tendinitis of left shoulder Essential hypertension Former smoker GERD (gastroesophageal reflux disease) Gout History of echocardiogram History of hiatal hernia History of WA (myocardial infarction) History of steroid therapy History of stress test Hyperlipidemia Injury of head and neck Internal impingement of both shoulders Left knee pain Leg cramps Nausea and vomiting Neurogenic bladder Osteoarthritis of left knee Tear of medial meniscus of left knee Wears glasses Wears partial dentures Surgical History History of ankle surgery History of appendectomy History of back surgery History of colonoscopy History of esophagogastroduodenoscopy (EGD) History of knee surgery History of left heart catheterization History of right inguinal hernia repair History of surgery on arm Status post lumbar microdiscectomy (~2007) Family History Mother Diabetes Hypertension Thyroid disorderGrandmother Dementia Cancer breast Social History Smoking Status: Former smoker how long ago did patient quit smokin years ago alcohol intake: current alcohol intake frequency: a few times a week substance use type: former substance user Date of last use: 13 years ago, marijuana and crack/cocaine caffeine: Yes Type: coffee Number of servings: 2 HPI LEFT KNEE Details: This documentation accurately reflects the service provided and the decisions made by me, Dr. Rod Eli MD 08/12/23 0831. Part of today?s visit was documented by [ ], acting as scribe. BELLO FLOREZ is a 53 year old M here today for WCB claim, FU pending decision on coverage for surgery. it was approved and he has a date for august. Ortho Exam General General: Yes no acute distress Neurologic: Yes alert and Yes oriented x3 Psychologic: Yes reasonable and appropriate Coding Level of Care Code Off vis,est,level 3 Diagnoses Tear of medial meniscus of left knee S83.242A Osteoarthritis of left knee M17.12 Left knee pain M25.562 Assessment and Plan Assessment and Plan (1) Tear of medial meniscus of left knee: Status: Acute Plan: 52-year-old man with continued left knee pain and mechanical symptoms. MRI does show a tear of the medial meniscus as well as mild medial compartment degenerative changes and changes of the patellofemoral joint and an effusion. The patient is failing conservative management but he could still try rest ice cortisone injections anti-inflammatories bracing or other conservative care. Surgical option for this would be left knee arthroscopy and considering a medial meniscus repair although this is not overly peripheral he already had an attempt at partial meniscectomy and it does look like the type of tear that would be amenable to an all inside repair of the medial meniscus. Updated consent same procedure, new date. Pros and cons risks and benefits were discussed with the patient including but not limited to infection, pain, stiffness, bleeding, damage to surrounding structures, neurovascular injury, recurrence or retear, failure or wear of hardware or fixation, instability, fracture, deep vein thrombosis and pulmonary embolism, anesthetic risks, , patient dissatisfaction, need for further surgery and other risks. Patient understood and wished to proceed with surgery, and signed the informed consent documentation. [facility] Medical History (Updated 08/14/23 @ 09:05 by Rebecca Kim) Abdominal pain Arthritis Back pain Bilateral carpal tunnel syndrome Bilateral inguinal hernia Calcific tendinitis of left shoulder Cardiology follow-up encounter Essential hypertension Former smoker GERD (gastroesophageal reflux disease) Gout History of echocardiogram History of hiatal hernia History of steroid therapy History of stress test Hyperlipidemia Injury of head and neck Internal impingement of both shoulders Left knee pain Leg cramps Nausea and vomiting Neurogenic bladder No natural teeth Osteoarthritis of left knee Tear of medial meniscus of left knee Wears glasses Home Medications allopurinol 100 mg tablet 100 mg PO DAILY gout 03/24/21 [History Last Taken Unknown] omeprazole 40 mg capsule,delayed release 40 mg PO DAILY GERD 03/24/21 [History Last Taken 08/28/23 04:00] gabapentin 300 mg capsule 300 mg PO TID #90 caps 02/08/22 [Rx Last Taken Unknown] amlodipine 5 mg tablet 5 mg PO DAILY 07/31/22 [History Last Taken 08/28/23 04:00] losartan 50 mg tablet 100 mg PO BID 08/14/23 [History Last Taken 08/28/23 04:00] Allergy/AdvReac Type Severity Reaction Status Date / Time codeine Allergy Severe Anaphylaxis Verified 08/28/23 08:27 chlorzoxazone Allergy Hives Verified 08/28/23 08:27 [From Parafelecia Johnson] hydrochlorothiazide AdvReac Intermediate GI upset Verified 08/28/23 08:27 lisinopril AdvReac Intermediate GI upset Verified 08/28/23 08:27 tramadol AdvReac Nausea Verified 08/28/23 08:27 Family History Mother Diabetes Hypertension Thyroid disorder Grandmother Dementia Cancer breast Surgical History History of ankle surgery History of appendectomy History of back surgery History of cardiac catheterization History of colonoscopy History of esophagogastroduodenoscopy (EGD) History of knee surgery History of left heart catheterization History of right inguinal hernia repair History of surgery on arm Status post lumbar microdiscectomy (~2007) Social History Smoking Status: Former smoker how long ago did patient quit smokin years ago alcohol intake: current alcohol intake frequency: a few times a week substance use type: former substance user Date of last use: 13 years ago, marijuana and crack/cocaine caffeine: Yes Type: coffee Number of servings: 2 Vital Signs Vital Signs Vital Signs: 08/28/23 08:30 08/28/23 08:30 Temperature 98.1 F Temperature Source Temporal Pulse Rate 75 Respiratory Rate 16 Respiratory Pattern Normal Blood Pressure 119/77 Blood Pressure Mean 91 Blood Pressure Source Monitor Blood Pressure Position Semi-Fowlers Blood Pressure Location Left Arm Pulse Ox 95 Oxygen Delivery Method Room Air Weight Weight: 178 lb 9.191 oz Body Mass Index (BMI) 28.8
[2023-08-28] MEDS: Cefazolin 2 GM in 0.9% Normal Saline (100mL Bag) 100 ML IV (09:30)
[2023-08-28] MEDS: Epinephrine (1 mg/ml) 1 MG/ML VIAL (10:04)
--- NOTE | 2023-08-28 10:50 | PCM.OPRPT ---
Problems Associated Problem List Diagnoses (1) Tear of medial meniscus of left knee: (2) Osteoarthritis of left knee: (3) Left knee pain: Report of Operation Date of Procedure: 08/28/23 Pre-Operative Diagnosis: Left knee medial meniscus tear Post-Operative Diagnosis: Same Surgery/Procedure Performed:: Left knee arthroscopy medial meniscus repair Surgeon: Rod Eli Type of Anesthesia: General Anesthesiologist: Emilio Majano Estimated Blood Loss (mL): 20 Description of Procedure: Patient brought to the operating room theater. Placed supine on the table. General anesthesia induced. 2 g IV Ancef administered prior to start of procedure. All bony prominences padded. SCD on the nonoperative leg. Post use on the left side. 34 inch tourniquet applied to the thigh appropriately padded. Lower extremity prepped and draped in the usual sterile fashion allowing over 3 minutes drying time prior to draping. Preoperative timeout performed to confirm the site patient and the surgery. Began by elevating the limb inflated the tourniquet to 250 mmHg. Used standard anterolateral and anteromedial arthroscopy portals. Did a full diagnostic arthroscopy. Cartilage on the undersurface of the patella grade 1 fraying of the trochlea was normal. Medial and lateral gutters entered no loose bodies no obvious abnormalities. ACL appeared normal and stable to probing there was some little bit of redundant tissue on either side of the ACL that I cleaned up the may have been impinging in the joint. Lateral compartment appeared normal normal cartilage normal lateral meniscus no obvious tears some slight fraying on the undersurface. I then entered the medial compartment there was 1 small area of grade 1 chondral damage at the medial femoral condyle for length of about 1 cm that was thin 1mm width. On the tibial side there was some mild grade 1-2 changes. Medial meniscus status was stated on the MRI had a horizontal cleavage tear at the posterior horn. The root was stable as was the rest of meniscus. 'Pie crusted' the MCL directly visualizing at the joint to open up the medial joint. Used additional AM and AL portals for direct access during repair suturing. I used a rasp instrument to stimulate healing inside the tear. I then used a Arthrex all inside fiber stitch 2-0 nonabsorbable suture all inside implants. I placed 5 vertical mattress sutures as well as barrel sutures through the capsule on either side of the meniscus as well sutures that went directly through the meniscus just superior to the tear as well as through the inferior capsule. This achieved good solid repair and compression at the tear site, while avoiding elevating the meniscus. Meniscus probed and tear probed found to be a stable and solid. Arthroscopy pictures taken and saved throughout the case. Case terminated tourniquet let down wounds cleaned with wet and dry dressing followed application of Steri-Strips Adaptic 4 x 4 gauze ABD dressing and 6 inch [place] loosely wrapped with a hinged knee brace locked in full extension. Patient woken up from a general anesthetic transferred off the operating table and taken postanesthetic care unit in stable addition. All sponge needle instrument counts were correct no complications. Plan for patient weightbearing as tolerated in full extension with crutches for the first 6 weeks and passive range of motion with physical therapy only 0 to 90 degrees per standard meniscus repair protocol. cpt 96636, Complications none Admit VTE Documentation VTE Present on Admission: No VTE Mechan Device Prophylaxis: SCD's VTE Pharm Prophylaxis ordered?: No Reason prophylaxis not ordered:: Treatment Not Indicated Procedures Musculoskeletal 20xxx-29xxx: Other Procedure See Report
--- NOTE | 2023-08-28 11:02 | DCINST_ITS ---
Discharge Instructions Diet Discharge Diet: No restrictions Activity Discharge Activity: Use Crutches Ice area for (Minutes): 10 Lifting Restrictions: weight bearing ok with leg straight and in brace Keep extremity elevated above heart level: Operative Extremity Dressing / Incision Call your doctor if your incision/area has: Continuous Slow Oozing, Sudden Increased Bleeding, Increased Pain/ Swelling, Increased Redness, Foul Smelling Discharge and Swelling at the incision site Change Dressing in: leave in place till F/U Cleanse incision/area with: Do not get Incision Wet Follow Up Care Please Follow Up With: Rod Eli MD When: 2 days Test Results: Test results from this visit will be discussed in further detail at your follow- up appointment, if applicable. Discharge Plan Admission Attending Provider: Rod Eli Primary Care Provider: Chai Pathak Discharge Orders/Prescriptions Prescriptions: New oxycodone-acetaminophen [Percocet] 5-325 mg tablet 1 tab PO Q4H MDD 4 PRN (Reason: pain) 5 Days Qty: 14 0RF No Action omeprazole 40 mg capsule,delayed release(DR/EC) 40 mg PO DAILY allopurinol 100 mg tablet 100 mg PO DAILY gabapentin 300 mg capsule 300 mg PO TID Qty: 90 1RF amlodipine 5 mg tablet 5 mg PO DAILY losartan 50 mg tablet 100 mg PO BID Referrals / Follow Up: Chai Pathak DO [Primary Care Provider] - Rod Eli MD [Med Staff - Active Staff] - Disposition Disposition (needs filled in before D/C Order can be placed): Home, Self Care
[2023-08-28] MEDS: Oxycodone/Apap 5/325 Tablet PO (13:10)
== END 2023-08-28 13:57 | disposition home or self-care (01) ==
LOC: SDC 07:54 → AC 07:58
PROVIDERS: PCP Family Medicine; Referring Provider Orthopaedic Surgery Sports Medicine; Visit Provider Orthopaedic Surgery Sports Medicine
PROC: (CPT 29870; principal; 2023-08-28 09:20)
DX: S83.242A Other tear of medial meniscus, current injury, left knee, initial encounter (principal); X58.XXXA Exposure to other specified factors, initial encounter; M17.12 Unilateral primary osteoarthritis, left knee; I10 Essential (primary) hypertension; E78.5 Hyperlipidemia, unspecified; M10.9 Gout, unspecified; K21.9 Gastro-esophageal reflux disease without esophagitis; Z79.899 Other long term (current) drug therapy; Z87.891 Personal history of nicotine dependence
CPT/HCPCS: 29882; 01400; C1713; J7120; J2405

== ENCOUNTER 2024-03-11 07:00 | Outpatient (RCR) | payer OTHER, SELFPAY ==
--- NOTE | 2023-09-18 13:20 | HP.PTEVAL_ITS ---
Patient's Visit Information Visit Information Visit Information: BELLO FLOREZ is a 53 year old M referred to Physical Therapy by Dr. Rod Eli MD with a diagnosis of OTHER TEAR MEDIAL MENISCUS. Date of Evaluation: 09/18/23 Physical Therapist: Dennis Norris, PT, Cert MDT, OCS Visit Plan Frequency: 3x /Week Duration: 6 Weeks Plan: S/P MEDIAL MENISCUS REPAIR 08/26/23 NWB LLE WITH CRUTCHES BRACE LOCKED 0-90 DEGREES KNEE ROM SEE GUIDELINES FOR MENISCUS REPAIR PT INTERVENTIONS ROM ,PATELLA MOBS ,MAT EX'S ,PROGRESS WITH GAIT WITH FWB ,PROGRESSION STRENGTHENING /QUAD/HAMS/HIPEX'S OPEN/CLOSED CHAIN PER PROTOCAL ,BIKE /NUSTEP , AND FUNCTIONAL STRENGTHENING PER PROTOCAL Subjective Subjective: This 53 y/o male presents to physical therapy with left knee arthroscopy medial meniscus repair on August 27 at [facility] . Patient DOS with NWB LLE with brace locked in extension. Most recently seen DR on 09/10/23 recommend PT cont with NWB and start PROM knee flexion 90 degrees. Patient initially injury at work ,but had initial surgery at [facility] meniscectomy medial Jun 2022 . Patient had PT with patient no improving with pain.Patient had MRI prior. to surgery . Patient to return to October 10. Patient has pain medial knee /posterior knee. Denies paresthesia/tingling. Patient stopped pain medication. Patient pain symptoms affects sleeping. Patient has limitation with all functional activities walking/standing and ADLS and unable to return to work . Patient has difficulty with steps. Patient surgery affects QOL and function/job demands . Patient goals to return to prior level of function and job demands. SOCIAL: single VOCATION: [employer] Pain Left Knee: Pain Intensity (Out of 10): 5 Pain Intensity Range: 10 Objective Objective: POSTURE: Brace locked in extension knee slightly flexed NEURO: intact c/o some paresthesia lateral calf INCISION: well approximate GAIT: ambulates with crutches NWB LLE with knee brace locked in extension MID PATELLA EDEMA: 37.5cm 6 ABOVE SUPRAPATELLAR : 48.3cm AAROM: supine knee flexion 10-90 degrees MMT:( peak force) 0 Balance/Special Test Scores Lower Extremity Functional Score: 1 Goals Goal 1:: Patient to be I with [facility] for meniscectomy repair Goal Time Frame: 8-12 Weeks Goal 2:: Patient to normalize gait Goal Time Frame: 8-12 Weeks Goal 3:: Patient improve AROM 0-125 DEGREES to improve stairs Goal Time Frame: 8-12 Weeks Goal 4:: Patient to improve peak force quads/has by 25-30# strength to improve function Goal Time Frame: 8-12 Weeks Goal 5:: Patient to improve LFES score by 10-20 points to improve QOL and RTW Goal Time Frame: 8-12 Weeks Goal 6:: Patient to improve 75% improvement with increase function and QOL/RTW Goal Time Frame: 8-12 Weeks Rehabilitation Potential Physical Therapy Diagnosis: This patient underwent s/p left medial meniscus repair 08/28/23 with pain ,decrease gait with NWB with brace locked in extension ,weakness ,decrease ROM ,impairs function and ADLS and RTW thus benefit from skilled PT Rehabilitation Potential: Good Anticipated Interventions Patient/Client Instruction: Educate patient on: Condition and Plan of Care For the Purpose of:: To decrease pain, To increase ROM, To improve muscle performance and motor function, To improve ability to perform ADL's, To increase tolerance to activity/condition/position, To improve ability of physical actions for home/community/work/leisure, To improve health of tissue, To decrease soft tissue restriction, To increase flexibility/ROM, To improve endurance, To improve balance, To reduce risk of recurrence and To improve tolerance to ADL's Therapeutic Exercise to Include: Strength training, Endurance training, Balance training, Flexibilty training, Gait and locomotor training and Active ROM Comment: STRENGTHENING PER GUIDELINES For the Purpose of:: To decrease pain, To increase ROM, To improve muscle performance and motor function, To improve ability to perform ADL's, To increase tolerance to activity/condition/position, To improve ability of physical actions for home/community/work/leisure, To improve gait and locomotor functions, To improve health of tissue, To decrease soft tissue restriction, To increase flexibility/ROM, To improve endurance, To improve balance and To improve tolerance to ADL's TENS: Yes IF ES: Yes Cryotherapy (ice pack, ice massage): Yes Vasopneumatic device: Yes For the Purpose of:: To decrease pain, To decrease swelling/inflammation, To increase ROM and To improve nutrient delivery to tissue Text: Thank you for the opportunity to evaluate your patient. For Medicare and Medicare HMO plans, please review the plan of care and approve it. It will need to be FAXED BACK to us at [phone] for Medicare purposes. For Medicare only, by signing this I certify the plan of care. Please let me know if there are questions or concerns regarding this plan of care. Physician Signature: Date:
--- NOTE | 2024-01-10 10:54 | HP.PTREVAL_ITS ---
Re-Evaluation Intro: Dr. Rod Eli MD, It has been my pleasure to treat BELLO FLOREZ over the last 36 visits for OTHER TEAR MEDIAL MENISCUS. Please see the progress note below for an update on the physical therapy plan of care! Subjective Subjective: Seen DR recommended work conditioning 10 visit's 3-5 days/week Objective Objective/Function: Patient has made significant progress with ROM and strength GAIT: reciprocal pattern decrease stance LLE AROM: 0-125 supine knee flexion STAIRS:alternating steps no rails MMT: ( peak force) quads 55.2 ,hamstrings 42.7 Plan Plan Plan: S/P MEDIAL MENISCUS REPAIR SEE GUIDELINES FOR MENISCUS REPAIR PROGRESS WITH WORK CONDITIONING WITH AEROBIC EX'S ,JOB SIMULATION ,FUNCTIONAL STRENGTHENING LLE QUADS/HAMS /HIP ,ROM/FLEXABILITY 3-5xweek UP TO 4 HOURS 30 HRS TOTAL 10 VISISTS Balance/Gait/Functional tests Balance/Special Test Scores Lower Extremity Functional Score: 1 30 Second Chair Rise Test Seconds: 15 Goals Goals Goal 1:: Patient to be I with [facility] for meniscectomy repair Goal Time Frame: 8-12 Weeks Goal 2:: Patient to normalize gait Goal Time Frame: 8-12 Weeks Goal Progress: Progressing Goal 3:: Patient improve AROM 0-130 DEGREES to improve stairs( new goal) Goal Time Frame: 8-12 Weeks Goal 4:: Patient to improve peak force quads/has by 25-30# strength to improve function Goal Time Frame: 8-12 Weeks Goal 5:: Patient to improve LFES score by 10-20 points to improve QOL and RTW( new goals Goal Time Frame: 8-12 Weeks Goal 6:: Patient to improve 75% improvement with increase function and QOL/RTW Goal Time Frame: 8-12 Weeks Goal Progress: Progressing Anticipated Interventions Anticipated Interventions Patient/Client Instruction: Educate patient on: Condition and Plan of Care For the Purpose of:: To decrease pain, To increase ROM, To improve muscle performance and motor function, To improve ability to perform ADL's, To increase tolerance to activity/condition/position, To improve ability of physical actions for home/community/work/leisure, To improve health of tissue, To decrease soft tissue restriction, To increase flexibility/ROM, To improve endurance, To improve balance, To reduce risk of recurrence and To improve tolerance to ADL's Therapeutic Exercise to Include: Strength training, Endurance training, Balance training, Flexibilty training, Gait and locomotor training and Active ROM Comment: STRENGTHENING PER GUIDELINES For the Purpose of:: To decrease pain, To increase ROM, To improve muscle perf ormance and motor function, To improve ability to perform ADL's, To increase tolerance to activity/condition/position, To improve ability of physical actions for home/community/work/leisure, To improve gait and locomotor functions, To improve health of tissue, To decrease soft tissue restriction, To increase flexibility/ROM, To improve endurance, To improve balance and To improve tolerance to ADL's TENS: Yes IF ES: Yes Cryotherapy (ice pack, ice massage): Yes Vasopneumatic device: Yes For the Purpose of:: To decrease pain, To decrease swelling/inflammation, To increase ROM and To improve nutrient delivery to tissue Re-Evaluation Ending Re-evaluation ending: Please do not hesitate to contact me at [phone] by phone or if you have questions or concerns regarding this new plan of care! Sincerely, Dennis Norris, PT, Cert MDT, OCS
== END 2024-03-11 14:09 | disposition home or self-care (01) ==
LOC: PT 07:00
PROVIDERS: PCP Family Medicine; Referring Provider Orthopaedic Surgery Sports Medicine; Visit Provider Orthopaedic Surgery Sports Medicine
DX: S83.242D Other tear of medial meniscus, current injury, left knee, subsequent encounter (principal)
CPT/HCPCS: 97110; 97162; 97530

== ENCOUNTER 2024-03-27 08:30 | Outpatient (RCR) | payer OTHER, SELFPAY ==
--- NOTE | 2024-03-27 09:31 | HP.PTDCSUM_ITS ---
Discharge Summary D/C summary: It has been my pleasure to treat BELLO FLOREZ referred by Dr. Rod Eli MD, with the diagnosis of OTHER TEAR MEDIAL MENISCUS for a total of 56 visit(s). Discharge Date: 03/27/24 Please see the following information for a summary of their discharge status. Subjective Subjective: Ready to work . 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 Overall Improvement % Improvement: 75 Objective Objective/Function: GAIT: reciprocal gait AROM: supine-knee flexion 0-130 degrees supine flexion MMT: ( peak force) quads 53.2 ,hamstrings 45.6 NO PAIN with Squats LIFTING X10 REPS 65# LIFTING X3 : 80# Sled pish 130# 18 STEP Patient has demonstrated to RTW without limiations Goals Goal 1:: Patient to be I with [facility] for meniscectomy repair Goal Progress: Goal Met Goal 2:: Patient to normalize gait Goal Progress: Goal Met Goal 3:: Patient improve AROM 0-130 DEGREES to improve stairs Goal Progress: Goal Met Goal 4:: Patient to improve peak force quads/has by 25-30# strength to improve function Goal Progress: Goal Met Goal 5:: Patient to improve LFES score by 10-20 points to improve QOL and RTW Goal Progress: Goal Met Goal 6:: Patient to improve 75% improvement with increase function and QOL/RTw2 Plan Plan: D/C TENTATIVE RTW Apr 07 D/C Information d/c sentence: If there are questions or concerns regarding this patient's physical therapy, please feel free to call me at [phone]. Thank you for the referral of this patient. Sincerely, Dennis Norris, PT, Cert MDT, OCS Balance/Gait/Functional tests Balance/Special Test Scores Lower Extremity Functional Score: 65 Improvement % Improvement: 75
== END 2024-03-27 10:29 | disposition home or self-care (01) ==
LOC: PT 08:30
PROVIDERS: PCP Family Medicine; Referring Provider Orthopaedic Surgery Sports Medicine; Visit Provider Orthopaedic Surgery Sports Medicine
DX: S83.242D Other tear of medial meniscus, current injury, left knee, subsequent encounter (principal)
CPT/HCPCS: 97110; 97530